=== PATIENT | male | born 1975 | race Caucasian/White ===

== ENCOUNTER 2017-07-24 15:55 | Inpatient (IN) | payer OTHER ==
[2017-07-24 17:29] VITALS: BMI 29.0
--- NOTE | 2017-07-24 18:17 | HP ---
COWS - Scale Resting Pulse: 0= DE 80 or Below Sweatin= Chills/Flushing Restless Observation: 3= Extraneous Movement Pupil Size: 2= Moderately Dilated Bone or Joint Aches: 2= Severe Diffuse Aches Runny Nose/ Eye Tearin= Runny Nose/Eyes GI Upset > 30mins: 3= Vomiting/Diarrhea Tremor Observation: 2= Slight Tremor Visible Yawning Observation: 2= >3x During Session Anxiety or Irritability: 2=Irritable/Anxious Goose Flesh Skin: 0=Smooth Skin COWS Score: 19 Admission ROS S - HPI Chief Complaint: I NEED HELP TO STOP USING HEROIN AND COCAINE Allergies/Adverse Reactions: Allergies Allergy/AdvReac Type Severity Reaction Status Date / Time No Known Drug Allergies Allergy Verified 09/09/15 23:05 fish Allergy Severe Hives Uncoded 09/09/15 23:05 History of Present Illness: THIS 42 YEARS OLD MALE WITH HEROIN AND COCAINE DEPENDENCE,SEEKING DETOX,LAST TREATMENT Exam Limitations: No Limitations - Ebola screening Have you traveled outside of the country in the last 21 days: No Have you had contact with anyone from an Ebola affected area: No Have you been sick,other than usual withdrawal symptoms: No Do you have a fever: No - Review of Systems Constitutional: Chills, Diaphoresis, Loss of Appetite, Malaise, Night Sweats, Changes in sleep, Weakness, Unintentional Wgt. Loss EENT: reports: Tearing, Nose Congestion Respiratory: reports: No Symptoms reported Cardiac: reports: No Symptoms Reported GI: reports: Diarrhea, Nausea, Poor Appetite, Vomiting : reports: No Symptoms Reported Musculoskeletal: reports: Back Pain, Joint Pain, Muscle Pain, Joint Stiffness Integumentary: reports: Dryness Neuro: reports: Tremors Endocrine: reports: No Symptoms Reported Hematology: reports: No Symptoms Reported, Swollen Glands (BIPOLAR DISORDER) Psychiatric: reports: Judgement Intact, Orientated x3, other Patient History - Patient Medical History Hx Anemia: No Hx Asthma: No Hx Chronic Obstructive Pulmonary Disease (COPD): No Hx Cancer: No Hx Cardiac Disorders: No Hx Congestive Heart Failure: No Hx Hypertension: No Hx Hypercholesterolemia: No Hx Pacemaker: No HX Cerebrovascular Accident: No Hx Seizures: No Hx Dementia: No Hx Diabetes: No Hx Gastrointestinal Disorders: No Hx Liver Disease: No Hx Genitourinary Disorders: No Hx Sexually Transmitted Disorders: No Hx Renal Disease (ESRD): No Hx Thyroid Disease: No Hx Human Immunodeficiency Virus (HIV): No (2014 neg) Hx Hepatitis C: Yes (TREATED IN 2015 WITH JOSE D) Hx Depression: Yes (AND ANXIETY) Hx Suicide Attempt: No Hx Bipolar Disorder: Yes Hx Schizophrenia: No Other Medical History: NO SUICIDAL,NO HOMICIDAL,FX OF LEFT WRIST IN 2014 TREATED AT [facility] - Patient Surgical History Past Surgical History: No Hx Neurologic Surgery: No Hx Cataract Extraction: No Hx Cardiac Surgery: No Hx Lung Surgery: No Hx Breast Surgery: No Hx Breast Biopsy: No Hx Abdominal Surgery: No Hx Appendectomy: No Hx Cholecystectomy: No Hx Genitourinary Surgery: No Hx Section: No Hx Orthopedic Surgery: No Anesthesia Reaction: No - PPD History Previous Implant?: Yes Documented Results: Negative w/o proof Date: 07/07/15 Results: 0 mm PPD to be Administered?: Yes - Smoking Cessation Smoking history: Current every day smoker Have you smoked in the past 12 months: Yes Aproximately how many cigarettes per day: 10 Hx Chewing Tobacco Use: No Initiated information on smoking cessation: Yes 'Breaking Loose' booklet given: 07/24/17 - Substance & Tx. History Hx Alcohol Use: No Hx Substance Use: Yes Substance Use Type: Cocaine, Heroin Hx Substance Use Treatment: Yes ([facility] 09/09/15 TO 09/13/15) - Substances Abused Heroin Route: Injection Frequency: Daily Amount used: 20 BAGS Age of first use: 19 Date of Last Use: 07/24/17 Cocaine Route: Injection Frequency: Daily Amount used: 80$ Age of first use: 18 Date of Last Use: 07/24/17 Family Disease History - Family Disease History Family Disease History: Diabetes: Grandparent, CA: Grandparent, Other: Father ( substance) Admission Physical Exam S - Vital Signs Vital Signs: Vital Signs - 24 hr 07/24/17 17:27 Temperature 97.5 F L Pulse Rate 70 Respiratory 18 Rate Blood Pressure 112/67 - Physical General Appearance: Yes: Moderate Distress, Tremorous, Irritable, Sweating, Anxious HEENTM: Yes: Normocephalic, DIANA, Pharynx Normal Respiratory: Yes: Lungs Clear, Normal Breath Sounds, No Respiratory Distress Neck: Yes: Within Normal Limits, Supple, Trachea in good position Breast: Yes: Within Normal Limits Cardiology: Yes: Within Normal Limits, Regular Rhythm, Regular Rate, S1, S2 Abdominal: Yes: Within Normal Limits, Normal Bowel Sounds, Non Tender, Soft Genitourinary: Yes: Within Normal Limits Back: Yes: Normal Inspection, Muscle Spasm Musculoskeletal: Yes: full range of Motion, Back pain, Joint Stiffness, Muscle Pain Extremities: Yes: Normal Range of Motion (DEFORMITY LEFT WRIST), Tremors, Other (DEFORMITY LEFT WIST OLD FX SINCE 2014) Neurological: Yes: cut in worker II-XII NML intact, Fully Oriented, Alert, Motor Strength 5/5 Integumentary: Yes: Dry, Track Villalobos Lymphatic: Yes: Within Normal Limits - Diagnostic (1) Opioid dependence with withdrawal Current Visit: No Status: Acute (2) Bipolar disorder Current Visit: No Status: Acute (3) Cocaine dependence, uncomplicated Current Visit: No Status: Acute (4) Wrist fracture Current Visit: No Status: Acute (5) Chronic low back pain Current Visit: No Status: Chronic (6) Hepatitis C Current Visit: No Status: Chronic Qualifiers: Viral hepatitis chronicity: chronic Hepatic coma status: without hepatic coma Qualified Code(s): B18.2 - Chronic viral hepatitis C (7) Heroin dependence Current Visit: No Status: Chronic (8) Weight loss Current Visit: Yes Status: Acute Cleared for Admission [facility] - Detox or Rehab [facility] Level of Care: Medically Managed Detox Regimen/Protocol: Methadone [facility] Breath Alcohol Content Breath Alcohol Content: 0 Urine Drug Screen - Results Drug Screen Negative: No Urine Drug Screen Results: HERMINIO-Cocaine, OPI-Opiates
[2017-07-24] MEDS ORDERED: guaiFENesin/D-METHORPHAN HB 10 ML UNIT-DOSE CUPS PO PRN (18:38)
[2017-07-24] MEDS ORDERED: P-EPHED 60MG/TRIPROLIDI 2.5MG TABLET PO PRN (18:38)
[2017-07-24] MEDS ORDERED: METHADONE HCL 10 MG TABLET (FOR DETOX USE ONLY) PO ONE ×2 (18:38→23:00)
[2017-07-24] MEDS ORDERED: MENTHOL/PHENOL 1 EACH UD MM PRN (18:38)
[2017-07-24] MEDS ORDERED: NICOTINE POLACRILEX 2 MG GUM BC PRN (18:38)
[2017-07-24] MEDS ORDERED: LOPERAMIDE HCL 2 MG CAPSULE PO PRN (18:38)
[2017-07-24] MEDS ORDERED: hydrOXYzine PAMOATE 50 MG CAPSULE (FP) PO PRN (18:38)
[2017-07-24] MEDS ORDERED: MAGNESIUM CITRATE 300 ML BOTTLE PO PRN (18:38)
[2017-07-24] MEDS ORDERED: IBUPROFEN 400 MG TABLET (FP) PO PRN (18:38)
[2017-07-24] MEDS ORDERED: MAG HYDROX/AL HYDROX/SIMETH 30 ML UNIT-DOSE CUP PO PRN (18:38)
[2017-07-24] MEDS ORDERED: MAGNESIUM HYDROX 2400MG/30ML ORAL SUSPENSION 30 ML CUP PO PRN (18:38)
[2017-07-24] MEDS ORDERED: diphenhydrAMINE HCL 50 MG CAPSULE PO PRN (18:38)
[2017-07-24] MEDS ORDERED: ACETAMINOPHEN 325 MG TABLET (FP) PO PRN (18:38)
[2017-07-24] MEDS ORDERED: METHADONE HCL 10 MG TABLET (FOR DETOX USE ONLY) ONE (20:44)
[2017-07-24] MEDS: THIAMINE HCL 100 MG TABLET (FP) PO SCH (21:01)
[2017-07-24] MEDS: cloNIDine HCL 0.1 MG TABLET PO SCH (21:01)
[2017-07-24] MEDS: diazePAM 5 MG TABLET PO PRN (21:02)
[2017-07-24] MEDS: NICOTINE 21 MG/24 HOURS TOPICAL PATCH TD SCH (21:03)
[2017-07-25] MEDS: diazePAM 5 MG TABLET PO PRN ×4 (05:40→19:14)
[2017-07-25 07:26] LABS: URINE APPEARANCE SLCLOUDY; URINE BILIRUBIN NEGATIVE (NEGATIVE); URINE BLOOD NEGATIVE (NEGATIVE); URINE COLOR DKYELLOW; URINE GLUCOSE (UA) NEGATIVE (NEGATIVE); URINE KETONE NEGATIVE (NEGATIVE); URINE LEUK ESTERASE NEGATIVE (NEGATIVE); URINE NITRITE NEGATIVE (NEGATIVE); URINE PROTEIN NEGATIVE (NEGATIVE); URINE UROBILINOGEN 4.0 E.U/dl mg/dL (0.2-1.0)
--- NOTE | 2017-07-25 08:51 | CONSULT ---
[facility] Psychiatric Consult - Data Date of interview: 07/25/17 Admission source: Self-referred Identifying data: Mr Muhammad is a 42 years old single , father of a 4 years old daughter, unemployed with no source of income, homeless seeking detox treatment for heroin and cocaine Substance Abuse History: Reports history of heroin and cocaine use. He started using cocaine at age 18 & heroin at 19, consumes $80 worth of cocaine & 20 bags of heroin daily. Last used them on 07/24/17 Medical History: Significant for treatment for hepatitis c, LBP and history of fracture left wrist in 2014. Smokes 10 cigarettes daily Psychiatric History: Reports being diagnosed with Bipolar Disorder in 2003 and received psychiatric outpatient services in [place] and [facility] from 2007 to 2012 when he decided to stop taking medications. He was prescribed Seroquel, Depakote , Xanax and Buspar. Denies history of previous psychiatric hospitalization or suicidal attempt. At present, reports experiencing difficulty to sleep Physical/Sexual Abuse/Trauma History: Denies history of verbal, physical or sexual abuse as well as DV relationship Additional Comment: Reports history of 8 previous misdemeanor arrests. denies being on probation currently Mental Status Exam - Mental Status Exam Alert and Oriented to: Time, Place, Person Cognitive Function: Fair Patient Appearance: Well Groomed Mood: Hopeful, Euthymic Affect: Appropriate, Normal Range Patient Behavior: Cooperative Speech Pattern: Clear Voice Loudness: Normal Thought Process: Intact, Goal Oriented Thought Disorder: Not Present Hallucinations: Denies Suicidal Ideation: Denies Homicidal Ideation: Denies Insight/Judgement: Poor Sleep: Poorly Appetite: Fair Muscle strength/Tone: Normal Gait/Station: Normal Psychiatric Findings - Problem List ([place] 1, 2,3) (1) Substance induced mood disorder Current Visit: Yes Status: Acute (2) Bipolar disorder Current Visit: No Status: Acute (3) Opioid dependence with withdrawal Current Visit: No Status: Acute (4) Cocaine dependence, uncomplicated Current Visit: No Status: Acute (5) Nicotine dependence Current Visit: No Status: Chronic Qualifiers: Nicotine product type: cigarettes (6) Wrist fracture Current Visit: No Status: Acute (7) Chronic low back pain Current Visit: No Status: Chronic (8) Heroin dependence Current Visit: No Status: Chronic (9) Substance or medication-induced sleep disorder Current Visit: Yes Status: Acute - Initial Treatment Plan Initial Treatment Plan: 1) Start Ambien 10 mg po HS prn for insomnia. 2) Continue inpatient detoxification
--- NOTE | 2017-07-25 09:59 | EKG ---
Test Reason : Blood Pressure : / mmHG Vent. Rate : 056 BPM Atrial Rate : 056 BPM P-R Int : 158 ms QRS Dur : 104 ms QT Int : 454 ms P-R-T Axes : -27 063 045 degrees QTc Int : 438 ms SINUS BRADYCARDIA EARLY REPOLARIZATION NO PREVIOUS ECGS AVAILABLE Confirmed by SAVANAH AYOUB MD ([id number]) on 07/25/2017 9:59:00 AM Referred By: Confirmed By:SAVANAH AYOUB MD
[2017-07-25] MEDS ORDERED: METHADONE HCL 10 MG TABLET (FOR DETOX USE ONLY) PO ONE (10:00)
[2017-07-25 10:08] LABS: MCH 29.4 pg (25.7-33.7); MEAN PLT VOLUME 7.8 fl (7.5-11.1); PLATELET COUNT 190 K/MM3 (134-434); RDW 14.4 % (11.9-15.9); WHITE BLOOD COUNT 5.5 K/mm3 (4.0-10.0)
[2017-07-25] MEDS: cloNIDine HCL 0.1 MG TABLET PO SCH ×2 (10:17→22:00)
[2017-07-25] MEDS: PRENATAL VITAMINS W/ FOLIC ACID TABLET (FP) PO SCH (10:17)
[2017-07-25] MEDS: NICOTINE 21 MG/24 HOURS TOPICAL PATCH TD SCH ×2 (10:18→10:20)
[2017-07-25 10:38] LABS: ALBUMIN 3.2 g/dl (3.4-5.0); ANION GAP 6 (8-16); CALCIUM 8.4 mg/dL (8.5-10.1); CO2 28 mmol/L (21-32); GLUCOSE,RANDOM 127 mg/dL (74-106); SGOT/AST 27 U/L (15-37); SGPT/ALT 52 U/L (12-78)
[2017-07-25 10:40] LABS: ALK PHOS 121 U/L (45-117); BILIRUBIN,TOTAL 0.6 mg/dL (0.2-1.0); TOT PROT 6.1 g/dl (6.4-8.2)
--- NOTE | 2017-07-25 13:04 | PN ---
BHS COWS - Scale Resting Pulse: 1= [place] 81-100 Sweatin= Chills/Flushing Restless Observation: 3= Extraneous Movement Pupil Size: 0= Normal to Room Light Bone or Joint Aches: 2= Severe Diffuse Aches Runny Nose/ Eye Tearin= Runny Nose/Eyes GI Upset > 30mins: 2= Nausea/Diarrhea Tremor Observation of Outstretched Hands: 2= Slight Tremor Visible Yawning Observation: 1= 1-2x During Session Anxiety or Irritability: 2=Irritable/Anxious Goose Flesh Skin: 0=Smooth Skin COWS Score: 16 BHS Progress Note (SOAP) Subjective: Sweating, chills, interrupted sleep, anxious Objective: 07/25/17 13:01 Last Vital Signs Temp Pulse Resp BP Pulse Ox 98.6 F 82 18 98/60 07/25/17 09:46 07/25/17 09:46 07/25/17 09:46 07/25/17 09:46 Hypotension noted Laboratory Tests 07/24/17 07/25/17 07/25/17 21:35 08:00 08:00 WBC 5.5 RBC 4.37 Hgb 12.9 Hct 38.9 MCV 89.0 MCH 29.4 MCHC 33.0 RDW 14.4 Plt Count 190 D MPV 7.8 Sodium 138 Potassium 4.0 Chloride 104 Carbon Dioxide 28 Anion Gap 6 L BUN 12 Creatinine 1.0 D Creat Clearance w eGFR > 60 Random Glucose 127 H Calcium 8.4 L Total Bilirubin 0.6 AST 27 ALT 52 Alkaline Phosphatase 121 H D Total Protein 6.1 L Albumin 3.2 L Urine Color Dkyellow Urine Appearance Slcloudy Urine pH 5.0 D Ur Specific [place] 1.025 Urine Protein Negative Urine Glucose (UA) Negative Urine Ketones Negative Urine Blood Negative Urine Nitrite Negative Urine Bilirubin Negative Urine Urobilinogen 4.0 e.u/dl RPR Titer 07/25/17 08:00 WBC RBC Hgb Hct MCV MCH MCHC RDW Plt Count MPV Sodium Potassium Chloride Carbon Dioxide Anion Gap BUN Creatinine Creat Clearance w eGFR Random Glucose Calcium Total Bilirubin AST ALT Alkaline Phosphatase Total Protein Albumin Urine Color Urine Appearance Urine pH Ur Specific [place] Urine Protein Urine Glucose (UA) Urine Ketones Urine Blood Urine Nitrite Urine Bilirubin Urine Urobilinogen RPR Titer Nonreactive Labs noted: serum glucose 127 Assessment: 07/25/17 13:02 Withdrawal symptoms Noted with hypotension and hyperglycemia Plan: Continue detox Hypotension: encouraged to drink lots of water, water pitcher ordered Hyperglycemia: fasting serum glucose in AM, send HbA1c
[2017-07-25] MEDS: ZOLPIDEM TARTRATE 5 MG TABLET PO PRN (22:00)
[2017-07-25] MEDS: THIAMINE HCL 100 MG TABLET (FP) PO SCH (22:00)
[2017-07-25] MEDS: CYCLOBENZAPRINE HCL 10 MG TABLET (FP) PO PRN (22:00)
[2017-07-26] MEDS: diazePAM 5 MG TABLET PO PRN ×4 (05:31→22:01)
[2017-07-26] MEDS ORDERED: METHADONE HCL 5 MG TABLET (FOR DETOX USE ONLY) PO ONE (10:00)
[2017-07-26] MEDS: PRENATAL VITAMINS W/ FOLIC ACID TABLET (FP) PO SCH (10:11)
[2017-07-26] MEDS: cloNIDine HCL 0.1 MG TABLET PO SCH ×2 (10:11→22:01)
[2017-07-26] MEDS: NICOTINE 21 MG/24 HOURS TOPICAL PATCH TD SCH (10:12)
--- NOTE | 2017-07-26 10:17 | PN ---
BHS COWS - Scale Resting Pulse: 0= DE 80 or Below Sweatin= Chills/Flushing Restless Observation: 3= Extraneous Movement Pupil Size: 2= Moderately Dilated Bone or Joint Aches: 4=Acute Joint/Muscle Pain Runny Nose/ Eye Tearin= Nasal Congestion GI Upset > 30mins: 1= Stomach Cramp Tremor Observation of Outstretched Hands: 1= Tremor [place], Not Seen Yawning Observation: 2= >3x During Session Anxiety or Irritability: 2=Irritable/Anxious Goose Flesh Skin: 0=Smooth Skin COWS Score: 17 BHS Progress Note (SOAP) Subjective: ANXIETY,SWEATS,INTERMITTENT SLEEP. Objective: 07/26/17 10:16 Vital Signs Temperature 96.9 F L 07/26/17 08:49 Pulse Rate 66 07/26/17 08:49 Respiratory Rate 18 07/26/17 08:49 Blood Pressure 101/63 07/26/17 08:49 O2 Sat by Pulse Oximetry (%) Laboratory Last Values WBC 5.5 K/mm3 (4.0-10.0) 07/25/17 08:00 RBC 4.37 M/mm3 (4.00-5.60) 07/25/17 08:00 Hgb 12.9 GM/dL (11.7-16.9) 07/25/17 08:00 Hct 38.9 % (35.4-49) 07/25/17 08:00 MCV 89.0 fl (80-96) 07/25/17 08:00 MCH 29.4 pg (25.7-33.7) 07/25/17 08:00 MCHC 33.0 g/dl (32.0-35.9) 07/25/17 08:00 RDW 14.4 % (11.9-15.9) 07/25/17 08:00 Plt Count 190 K/MM3 (134-434) D 07/25/17 08:00 MPV 7.8 fl (7.5-11.1) 07/25/17 08:00 Sodium 138 mmol/L (136-145) 07/25/17 08:00 Potassium 4.0 mmol/L (3.5-5.1) 07/25/17 08:00 Chloride 104 mmol/L (98-107) 07/25/17 08:00 Carbon Dioxide 28 mmol/L (21-32) 07/25/17 08:00 Anion Gap 6 (8-16) L 07/25/17 08:00 BUN 12 mg/dL (7-18) 07/25/17 08:00 Creatinine 1.0 mg/dL (0.7-1.3) D 07/25/17 08:00 Creat Clearance w eGFR > 60 (>60) 07/25/17 08:00 Random Glucose 127 mg/dL (74-106) H 07/25/17 08:00 Calcium 8.4 mg/dL (8.5-10.1) L 07/25/17 08:00 Total Bilirubin 0.6 mg/dL (0.2-1.0) 07/25/17 08:00 AST 27 U/L (15-37) 07/25/17 08:00 ALT 52 U/L (12-78) 07/25/17 08:00 Alkaline Phosphatase 121 U/L (45-117) H D 07/25/17 08:00 Total Protein 6.1 g/dl (6.4-8.2) L 07/25/17 08:00 Albumin 3.2 g/dl (3.4-5.0) L 07/25/17 08:00 Urine Color Dkyellow 07/24/17 21:35 Urine Appearance Slcloudy 07/24/17 21:35 Urine pH 5.0 (5.0-8.0) D 07/24/17 21:35 Ur Specific [place] 1.025 (1.005-1.025) 07/24/17 21:35 Urine Protein Negative (NEGATIVE) 07/24/17 21:35 Urine Glucose (UA) Negative (NEGATIVE) 07/24/17 21:35 Urine Ketones Negative (NEGATIVE) 07/24/17 21:35 Urine Blood Negative (NEGATIVE) 07/24/17 21:35 Urine Nitrite Negative (NEGATIVE) 07/24/17 21:35 Urine Bilirubin Negative (NEGATIVE) 07/24/17 21:35 Urine Urobilinogen 4.0 e.u/dl mg/dL (0.2-1.0) 07/24/17 21:35 RPR Titer Nonreactive (NONREACTIVE) 07/25/17 08:00 Assessment: 10/02/17 10:16 WITHDRAWAL SX Plan: CONTINUE DETOX
[2017-07-26] MEDS: ZOLPIDEM TARTRATE 5 MG TABLET PO PRN (22:01)
[2017-07-26] MEDS: THIAMINE HCL 100 MG TABLET (FP) PO SCH (22:01)
[2017-07-26] MEDS: CYCLOBENZAPRINE HCL 10 MG TABLET (FP) PO PRN (22:01)
[2017-07-27] MEDS ORDERED: METHADONE HCL 5 MG TABLET (FOR DETOX USE ONLY) PO ONE (10:00)
[2017-07-27] MEDS: PRENATAL VITAMINS W/ FOLIC ACID TABLET (FP) PO SCH (10:10)
[2017-07-27] MEDS: NICOTINE 21 MG/24 HOURS TOPICAL PATCH TD SCH (10:10)
[2017-07-27] MEDS: diazePAM 5 MG TABLET PO PRN ×2 (10:10→17:17)
[2017-07-27] MEDS: cloNIDine HCL 0.1 MG TABLET PO SCH ×2 (10:11→22:05)
--- NOTE | 2017-07-27 12:17 | PN ---
BHS Progress Note (SOAP) Subjective: ALERT O X 3. C/O CHILLS, FATIGUE. Objective: 07/27/17 12:16 Vital Signs Temperature 96.8 F L 07/27/17 09:09 Pulse Rate 71 07/27/17 09:09 Respiratory Rate 18 07/27/17 09:09 Blood Pressure 105/53 07/27/17 09:09 O2 Sat by Pulse Oximetry (%) Laboratory Last Values WBC 5.5 K/mm3 (4.0-10.0) 07/25/17 08:00 RBC 4.37 M/mm3 (4.00-5.60) 07/25/17 08:00 Hgb 12.9 GM/dL (11.7-16.9) 07/25/17 08:00 Hct 38.9 % (35.4-49) 07/25/17 08:00 MCV 89.0 fl (80-96) 07/25/17 08:00 MCH 29.4 pg (25.7-33.7) 07/25/17 08:00 MCHC 33.0 g/dl (32.0-35.9) 07/25/17 08:00 RDW 14.4 % (11.9-15.9) 07/25/17 08:00 Plt Count 190 K/MM3 (134-434) D 07/25/17 08:00 MPV 7.8 fl (7.5-11.1) 07/25/17 08:00 Sodium 138 mmol/L (136-145) 07/25/17 08:00 Potassium 4.0 mmol/L (3.5-5.1) 07/25/17 08:00 Chloride 104 mmol/L (98-107) 07/25/17 08:00 Carbon Dioxide 28 mmol/L (21-32) 07/25/17 08:00 Anion Gap 6 (8-16) L 07/25/17 08:00 BUN 12 mg/dL (7-18) 07/25/17 08:00 Creatinine 1.0 mg/dL (0.7-1.3) D 07/25/17 08:00 Creat Clearance w eGFR > 60 (>60) 07/25/17 08:00 Random Glucose 127 mg/dL (74-106) H 07/25/17 08:00 Fasting Glucose 99 mg/dL (70-105) 07/26/17 07:30 Hemoglobin A1c % 6.1 % (4.8-6.0) H 07/26/17 07:30 Calcium 8.4 mg/dL (8.5-10.1) L 07/25/17 08:00 Total Bilirubin 0.6 mg/dL (0.2-1.0) 07/25/17 08:00 AST 27 U/L (15-37) 07/25/17 08:00 ALT 52 U/L (12-78) 07/25/17 08:00 Alkaline Phosphatase 121 U/L (45-117) H D 07/25/17 08:00 Total Protein 6.1 g/dl (6.4-8.2) L 07/25/17 08:00 Albumin 3.2 g/dl (3.4-5.0) L 07/25/17 08:00 Urine Color Dkyellow 07/24/17 21:35 Urine Appearance Slcloudy 07/24/17 21:35 Urine pH 5.0 (5.0-8.0) D 07/24/17 21:35 Ur Specific [place] 1.025 (1.005-1.025) 07/24/17 21:35 Urine Protein Negative (NEGATIVE) 07/24/17 21:35 Urine Glucose (UA) Negative (NEGATIVE) 07/24/17 21:35 Urine Ketones Negative (NEGATIVE) 07/24/17 21:35 Urine Blood Negative (NEGATIVE) 07/24/17 21:35 Urine Nitrite Negative (NEGATIVE) 07/24/17 21:35 Urine Bilirubin Negative (NEGATIVE) 07/24/17 21:35 Urine Urobilinogen 4.0 e.u/dl mg/dL (0.2-1.0) 07/24/17 21:35 RPR Titer Nonreactive (NONREACTIVE) 07/25/17 08:00 Assessment: 07/27/17 12:16 WITHDRAWAL SX Plan: CONTINUE DETOX
[2017-07-27] MEDS: THIAMINE HCL 100 MG TABLET (FP) PO SCH (22:05)
[2017-07-27] MEDS: ZOLPIDEM TARTRATE 5 MG TABLET PO PRN (22:05)
[2017-07-28] MEDS ORDERED: METHADONE HCL 10 MG TABLET (FOR DETOX USE ONLY) PO ONE (10:00)
[2017-07-28] MEDS: PRENATAL VITAMINS W/ FOLIC ACID TABLET (FP) PO SCH (10:10)
[2017-07-28] MEDS: cloNIDine HCL 0.1 MG TABLET PO SCH ×2 (10:10→22:06)
[2017-07-28] MEDS: NICOTINE 21 MG/24 HOURS TOPICAL PATCH TD SCH (10:10)
--- NOTE | 2017-07-28 11:37 | PN ---
BHS Progress Note (SOAP) Subjective: ANXIETY,BACKACHE,FATIGUE. Objective: 07/28/17 11:36 Vital Signs Temperature 96.6 F L 07/28/17 09:17 Pulse Rate 69 07/28/17 09:17 Respiratory Rate 18 07/28/17 09:17 Blood Pressure 103/52 07/28/17 09:17 O2 Sat by Pulse Oximetry (%) Laboratory Last Values WBC 5.5 K/mm3 (4.0-10.0) 07/25/17 08:00 RBC 4.37 M/mm3 (4.00-5.60) 07/25/17 08:00 Hgb 12.9 GM/dL (11.7-16.9) 07/25/17 08:00 Hct 38.9 % (35.4-49) 07/25/17 08:00 MCV 89.0 fl (80-96) 07/25/17 08:00 MCH 29.4 pg (25.7-33.7) 07/25/17 08:00 MCHC 33.0 g/dl (32.0-35.9) 07/25/17 08:00 RDW 14.4 % (11.9-15.9) 07/25/17 08:00 Plt Count 190 K/MM3 (134-434) D 07/25/17 08:00 MPV 7.8 fl (7.5-11.1) 07/25/17 08:00 Sodium 138 mmol/L (136-145) 07/25/17 08:00 Potassium 4.0 mmol/L (3.5-5.1) 07/25/17 08:00 Chloride 104 mmol/L (98-107) 07/25/17 08:00 Carbon Dioxide 28 mmol/L (21-32) 07/25/17 08:00 Anion Gap 6 (8-16) L 07/25/17 08:00 BUN 12 mg/dL (7-18) 07/25/17 08:00 Creatinine 1.0 mg/dL (0.7-1.3) D 07/25/17 08:00 Creat Clearance w eGFR > 60 (>60) 07/25/17 08:00 Random Glucose 127 mg/dL (74-106) H 07/25/17 08:00 Fasting Glucose 99 mg/dL (70-105) 07/26/17 07:30 Hemoglobin A1c % 6.1 % (4.8-6.0) H 07/26/17 07:30 Calcium 8.4 mg/dL (8.5-10.1) L 07/25/17 08:00 Total Bilirubin 0.6 mg/dL (0.2-1.0) 07/25/17 08:00 AST 27 U/L (15-37) 07/25/17 08:00 ALT 52 U/L (12-78) 07/25/17 08:00 Alkaline Phosphatase 121 U/L (45-117) H D 07/25/17 08:00 Total Protein 6.1 g/dl (6.4-8.2) L 07/25/17 08:00 Albumin 3.2 g/dl (3.4-5.0) L 07/25/17 08:00 Urine Color Dkyellow 07/24/17 21:35 Urine Appearance Slcloudy 07/24/17 21:35 Urine pH 5.0 (5.0-8.0) D 07/24/17 21:35 Ur Specific [place] 1.025 (1.005-1.025) 07/24/17 21:35 Urine Protein Negative (NEGATIVE) 07/24/17 21:35 Urine Glucose (UA) Negative (NEGATIVE) 07/24/17 21:35 Urine Ketones Negative (NEGATIVE) 07/24/17 21:35 Urine Blood Negative (NEGATIVE) 07/24/17 21:35 Urine Nitrite Negative (NEGATIVE) 07/24/17 21:35 Urine Bilirubin Negative (NEGATIVE) 07/24/17 21:35 Urine Urobilinogen 4.0 e.u/dl mg/dL (0.2-1.0) 07/24/17 21:35 RPR Titer Nonreactive (NONREACTIVE) 07/25/17 08:00 Assessment: 07/28/17 11:36 WITHDRAWAL SX Plan: CONTINUE DETOX
[2017-07-28] MEDS: ZOLPIDEM TARTRATE 5 MG TABLET PO PRN (22:06)
[2017-07-28] MEDS: THIAMINE HCL 100 MG TABLET (FP) PO SCH (22:06)
[2017-07-29] MEDS ORDERED: METHADONE HCL 5 MG TABLET (FOR DETOX USE ONLY) PO ONE (06:00)
[2017-07-29 06:51] VITALS: BP 97/64; PULSE 63; TEMP 96.4
--- NOTE | 2017-07-29 13:50 | DS ---
[facility] Detox Discharge Summary Admission Date: 07/24/17 Discharge Date: 07/29/17 - History Present History: Cocaine Dependence, Opioid Dependence Additional Comments: DETOX COMPLETED. PATIENT IS ALERT AND ORIENTED X 3. NAD. PATIENT ENCOURAGED TO FOLLOW UP WITH PMD FOR MEDICAL MANAGEMENT AT [place], [place]. HE REFUSED AFTERCARE REFERRAL AND PARTICIPATED IN 12 STEP IN HOUSE GROUP. Pertinent Past History: HEP. C, BACK PAIN, NICOTINE DEPENDENCE, ANXIETY DISORDER - Physical Exam Results Vital Signs: Vital Signs Temperature 96.4 F L 07/29/17 06:51 Pulse Rate 63 07/29/17 06:51 Respiratory Rate 18 07/29/17 06:51 Blood Pressure 97/64 07/29/17 06:51 O2 Sat by Pulse Oximetry (%) Laboratory Last Values WBC 5.5 K/mm3 (4.0-10.0) 07/25/17 08:00 RBC 4.37 M/mm3 (4.00-5.60) 07/25/17 08:00 Hgb 12.9 GM/dL (11.7-16.9) 07/25/17 08:00 Hct 38.9 % (35.4-49) 07/25/17 08:00 MCV 89.0 fl (80-96) 07/25/17 08:00 MCH 29.4 pg (25.7-33.7) 07/25/17 08:00 MCHC 33.0 g/dl (32.0-35.9) 07/25/17 08:00 RDW 14.4 % (11.9-15.9) 07/25/17 08:00 Plt Count 190 K/MM3 (134-434) D 07/25/17 08:00 MPV 7.8 fl (7.5-11.1) 07/25/17 08:00 Sodium 138 mmol/L (136-145) 07/25/17 08:00 Potassium 4.0 mmol/L (3.5-5.1) 07/25/17 08:00 Chloride 104 mmol/L (98-107) 07/25/17 08:00 Carbon Dioxide 28 mmol/L (21-32) 07/25/17 08:00 Anion Gap 6 (8-16) L 07/25/17 08:00 BUN 12 mg/dL (7-18) 07/25/17 08:00 Creatinine 1.0 mg/dL (0.7-1.3) D 07/25/17 08:00 Creat Clearance w eGFR > 60 (>60) 07/25/17 08:00 Random Glucose 127 mg/dL (74-106) H 07/25/17 08:00 Fasting Glucose 99 mg/dL (70-105) 07/26/17 07:30 Hemoglobin A1c % 6.1 % (4.8-6.0) H 07/26/17 07:30 Calcium 8.4 mg/dL (8.5-10.1) L 07/25/17 08:00 Total Bilirubin 0.6 mg/dL (0.2-1.0) 07/25/17 08:00 AST 27 U/L (15-37) 07/25/17 08:00 ALT 52 U/L (12-78) 07/25/17 08:00 Alkaline Phosphatase 121 U/L (45-117) H D 07/25/17 08:00 Total Protein 6.1 g/dl (6.4-8.2) L 07/25/17 08:00 Albumin 3.2 g/dl (3.4-5.0) L 07/25/17 08:00 Urine Color Dkyellow 07/24/17 21:35 Urine Appearance Slcloudy 07/24/17 21:35 Urine pH 5.0 (5.0-8.0) D 07/24/17 21:35 Ur Specific [place] 1.025 (1.005-1.025) 07/24/17 21:35 Urine Protein Negative (NEGATIVE) 07/24/17 21:35 Urine Glucose (UA) Negative (NEGATIVE) 07/24/17 21:35 Urine Ketones Negative (NEGATIVE) 07/24/17 21:35 Urine Blood Negative (NEGATIVE) 07/24/17 21:35 Urine Nitrite Negative (NEGATIVE) 07/24/17 21:35 Urine Bilirubin Negative (NEGATIVE) 07/24/17 21:35 Urine Urobilinogen 4.0 e.u/dl mg/dL (0.2-1.0) 07/24/17 21:35 RPR Titer Nonreactive (NONREACTIVE) 07/25/17 08:00 LABS REVIEWED Pertinent Admission Physical Exam Findings: WITHDRAWAL SX - Treatment Hospital Course: Detox Protocol Followed, Detoxed Safely, Responded well, Discharged Condition Good Patient has Accepted a Rehab Referral to: REFUSED AFTERCARE REFERRAL. INFORMATION PROVIDED TO PT. BY COUNSELOR - Medication Discharge Medications: Ambulatory Orders NK [No Known Home Medication] 09/09/15 - Diagnosis (1) Bipolar disorder Status: Chronic (2) Cocaine dependence, uncomplicated Status: Acute (3) Nicotine dependence Status: Acute Qualifiers: Nicotine product type: cigarettes Substance use status: in withdrawal Qualified Code(s): F17.213 - Nicotine dependence, cigarettes, with withdrawal; F17.213 - Nicotine dependence, cigarettes, with withdrawal (4) Opioid dependence with withdrawal Status: Acute (5) Substance induced mood disorder Status: Acute (6) Chronic low back pain Status: Chronic (7) Hepatitis C Status: Chronic Qualifiers: Viral hepatitis chronicity: chronic Hepatic coma status: without hepatic coma Qualified Code(s): B18.2 - Chronic viral hepatitis C; B18.2 - Chronic viral hepatitis C; B18.2 - Chronic viral hepatitis C; B18.2 - Chronic viral hepatitis C - AMA Did Patient Leave Against Medical Advice: No
== END 2017-07-29 08:55 | disposition home or self-care (01) | DRG 773 ==
LOC: YASAS 15:55 → Y3N 19:33
PROVIDERS: ADMIT Internal Medicine; ATTEND Internal Medicine
PROC: HZ2ZZZZ Detoxification Services for Substance Abuse Treatment (ICD-10-PCS; principal; 2017-07-24)
DX: F11.23 Opioid dependence with withdrawal (principal); F14.20 Cocaine dependence, uncomplicated; F17.213 Nicotine dependence, cigarettes, with withdrawal; F19.24 Other psychoactive substance dependence with psychoactive substance-induced mood disorder; F19.282 Other psychoactive substance dependence with psychoactive substance-induced sleep disorder; F31.9 Bipolar disorder, unspecified; B18.2 Chronic viral hepatitis C; M54.5 Low back pain; G89.29 Other chronic pain; E73.9 Lactose intolerance, unspecified; I95.9 Hypotension, unspecified; Z87.898 Personal history of other specified conditions; Z91.013 Allergy to seafood
CPT/HCPCS: 36415; 80053; 81003; 82947; 83036; 85027; 86593; 93005; 93010

== ENCOUNTER 2018-05-27 15:51 | Inpatient (IN) | payer OTHER ==
[2018-05-27 17:37] VITALS: BMI 24.2
[2018-05-27] MEDS ORDERED: MELATONIN 5 MG TABLETS PO PRN (22:00)
--- NOTE | 2018-05-27 22:13 | HP ---
COWS - Scale Resting Pulse: 0= [place] 80 or Below Sweatin=Flushed/Facial Moisture Restless Observation: 0= Sits Still Pupil Size: 0= Normal to Room Light Bone or Joint Aches: 4=Acute Joint/Muscle Pain Runny Nose/ Eye Tearin= Runny Nose/Eyes GI Upset > 30mins: 1= Stomach Cramp Tremor Observation: 4= Gross Tremor/Twitching Yawning Observation: 0= None Anxiety or Irritability: 2=Irritable/Anxious Goose Flesh Skin: 0=Smooth Skin COWS Score: 15 Admission [facility] Chief Complaint: HEROIN WITHDRAWAL SYMPTOMS Allergies/Adverse Reactions: Allergies Allergy/AdvReac Type Severity Reaction Status Date / Time No Known Drug Allergies Allergy Verified 05/27/18 20:06 fish Allergy Severe Hives Uncoded 07/24/17 20:49 History of Present Illness: 42 years old male with a long history of heroin dependence is seeking admission to detox. Patient has been to previous detox and reports 4 years of sobriety. He has medical history of Hep C, anxiety and depression. He denies suicide attempt and suicidal ideation at this time. Exam Limitations: No Limitations - Ebola screening Have you traveled outside of the country in the last 21 days: No (N) Have you had contact with anyone from an Ebola affected area: No Have you been sick,other than usual withdrawal symptoms: No Do you have a fever: No - Review of Systems Constitutional: Chills, Loss of Appetite, Malaise, Changes in sleep, Weakness EENT: reports: Nose Congestion Respiratory: reports: No Symptoms reported Cardiac: reports: No Symptoms Reported GI: reports: Constipated, Poor Appetite, Poor Fluid Intake, Abdominal cramping : reports: No Symptoms Reported Musculoskeletal: reports: Back Pain Integumentary: reports: Dryness Neuro: reports: Tremors Endocrine: reports: No Symptoms Reported Hematology: reports: No Symptoms Reported Psychiatric: reports: Anxious, Depressed Other Systems: Reviewed and Negative Patient History - Patient Medical History Hx Anemia: No Hx Asthma: No Hx Chronic Obstructive Pulmonary Disease (COPD): No Hx Cancer: No Hx Cardiac Disorders: No Hx Congestive Heart Failure: No Hx Hypertension: No Hx Hypercholesterolemia: No Hx Pacemaker: No HX Cerebrovascular Accident: No Hx Seizures: No Hx Dementia: No Hx Diabetes: No Hx Gastrointestinal Disorders: No Hx Liver Disease: No Hx Genitourinary Disorders: No Hx Sexually Transmitted Disorders: No Hx Renal Disease (ESRD): No Hx Thyroid Disease: No Hx Human Immunodeficiency Virus (HIV): No (2014 neg) Hx Hepatitis C: Yes (TREATED IN 2016 WITH JOSE D- Relapsed) Hx Depression: Yes (Not on medication) Hx Suicide Attempt: No Hx Bipolar Disorder: Yes (Not on medication) Hx Schizophrenia: No Other Medical History: Anxiety - Not on medication - Patient Surgical History Past Surgical History: Yes Hx Neurologic Surgery: No Hx Cataract Extraction: No Hx Cardiac Surgery: No Hx Lung Surgery: No Hx Abdominal Surgery: No Hx Appendectomy: Yes (APPENDECTOMY IN 1990) Hx Cholecystectomy: No Hx Genitourinary Surgery: No Hx Section: No Hx Orthopedic Surgery: No Anesthesia Reaction: No - PPD History Previous Implant?: Yes Implanted On Prior [facility] Admission?: Yes Date: 07/26/17 Results: 0 mm PPD to be Administered?: No - Reproductive History Patient is a Female of Child Bearing Age (11 -55 yrs old): No (Male) - Smoking Cessation Smoking history: Current every day smoker Have you smoked in the past 12 months: Yes Aproximately how many cigarettes per day: 10 Cigars Per Day: 10 Hx Chewing Tobacco Use: No Initiated information on smoking cessation: Yes 'Breaking Loose' booklet given: 05/27/18 - Substance & Tx. History Hx Substance Use: Yes Substance Use Type: Cocaine, Heroin Hx Substance Use Treatment: Yes ([facility]) - Substances Abused Heroin Route: Injection Frequency: Daily Amount used: $100 Age of first use: 19 Date of Last Use: 05/27/18 Cocaine Route: Injection Frequency: Daily Amount used: $60 Age of first use: 19 Date of Last Use: 05/27/18 Family Disease History - Family Disease History Family Disease History: Diabetes: Grandparent, [place]: Grandparent, Other: Father ( substance) Admission Physical Exam BHS - Vital Signs Vital Signs: Vital Signs - 24 hr 05/27/18 17:34 Temperature 98.0 F Pulse Rate 58 L Respiratory 16 Rate Blood Pressure 110/58 - Physical General Appearance: Yes: Moderate Distress HEENTM: Yes: EOMI, Normocephalic, Normal Voice, DIANA Respiratory: Yes: Lungs Clear, Normal Breath Sounds, No Respiratory Distress Neck: Yes: Supple Breast: Yes: Breast Exam Deferred Cardiology: Yes: Regular Rhythm, Regular Rate, S1, S2 Abdominal: Yes: Normal Bowel Sounds Genitourinary: Yes: Within Normal Limits Back: Yes: Normal Inspection Musculoskeletal: Yes: Back pain Extremities: Yes: Tremors Neurological: Yes: Alert, Normal Mood/Affect Integumentary: Yes: Warm Lymphatic: Yes: Within Normal Limits - Diagnostic (1) Anxiety Current Visit: Yes Status: Chronic (2) Depression Current Visit: Yes Status: Chronic Qualifiers: Depression Type: unspecified Qualified Code(s): F32.9 - Major depressive disorder, single episode, unspecified (3) Cocaine dependence, uncomplicated Current Visit: Yes Status: Chronic (4) Nicotine dependence Current Visit: Yes Status: Chronic Qualifiers: Nicotine product type: cigarettes Substance use status: in withdrawal Qualified Code(s): F17.213 - Nicotine dependence, cigarettes, with withdrawal (5) Opioid dependence with withdrawal Current Visit: Yes Status: Chronic (6) Chronic low back pain Current Visit: No Status: Chronic (7) Hepatitis C Current Visit: Yes Status: Chronic Qualifiers: Viral hepatitis chronicity: chronic Hepatic coma status: without hepatic coma Qualified Code(s): B18.2 - Chronic viral hepatitis C Cleared for Admission [facility] - Detox or Rehab [facility] Level of Care: Medically Managed Detox Regimen/Protocol: Methadone [facility] Breath Alcohol Content Breath Alcohol Content: 0 Urine Drug Screen - Results Drug Screen Negative: No Urine Drug Screen Results: HERMINIO-Cocaine, OPI-Opiates
[2018-05-27] MEDS ORDERED: MAGNESIUM CITRATE 300 ML BOTTLE PO PRN (22:19)
[2018-05-27] MEDS ORDERED: MENTHOL/PHENOL 1 EACH UD MM PRN (22:19)
[2018-05-27] MEDS ORDERED: LOPERAMIDE HCL 2 MG CAPSULE PO PRN (22:19)
[2018-05-27] MEDS ORDERED: MAG HYDROX/AL HYDROX/SIMETH 30 ML UNIT-DOSE CUP PO PRN (22:19)
[2018-05-27] MEDS ORDERED: ACETAMINOPHEN 325 MG TABLET (FP) PO PRN (22:19)
[2018-05-27] MEDS ORDERED: MAGNESIUM HYDROX 2400MG/30ML ORAL SUSPENSION 30 ML CUP PO PRN (22:19)
[2018-05-27] MEDS ORDERED: METHADONE HCL 10 MG TABLET (FOR DETOX USE ONLY) PO ONE ×2 (22:19→23:00)
[2018-05-27] MEDS ORDERED: IBUPROFEN 400 MG TABLET (FP) PO PRN (22:19)
[2018-05-27] MEDS ORDERED: P-EPHED 60MG/TRIPROLIDI 2.5MG TABLET PO PRN (22:19)
[2018-05-27] MEDS ORDERED: NICOTINE POLACRILEX 2 MG GUM BC PRN (22:19)
[2018-05-27] MEDS ORDERED: guaiFENesin/D-METHORPHAN HB 10 ML UNIT-DOSE CUPS PO PRN (22:19)
[2018-05-27] MEDS: diazePAM 5 MG TABLET PO PRN (23:50)
[2018-05-28] MEDS ORDERED: METHADONE HCL 10 MG TABLET (FOR DETOX USE ONLY) PO ONE (10:00)
[2018-05-28] MEDS: PRENATAL VITAMINS W/ FOLIC ACID TABLET (FP) PO SCH (10:13)
[2018-05-28] MEDS: diazePAM 5 MG TABLET PO PRN ×2 (10:14→22:30)
[2018-05-28] MEDS: NICOTINE 14 MG/24 HOURS TOPICAL PATCH TD SCH (10:14)
[2018-05-28 10:33] LABS: URINE APPEARANCE CLEAR; URINE BILIRUBIN NEGATIVE (<2.0 mg/dL); URINE COLOR YELLOW; URINE GLUCOSE (UA) NEGATIVE (NEGATIVE); URINE KETONE NEGATIVE (NEGATIVE); URINE LEUK ESTERASE NEGATIVE (NEGATIVE); URINE NITRITE NEGATIVE (NEGATIVE); URINE UROBILINOGEN 4.0 E.U/dl mg/dL (0.2-1.0)
[2018-05-28 10:36] LABS: HEMATOCRIT 33.8 % (35.4-49); HEMOGLOBIN 11.7 GM/dL (11.7-16.9); MCH 30.7 pg (25.7-33.7); MCHC 34.6 g/dl (32.0-35.9); MEAN CELL VOLUME 88.8 fl (80-96); MEAN PLT VOLUME 7.5 fl (7.5-11.1); PLATELET COUNT 190 K/MM3 (134-434); RBC 3.81 M/mm3 (4.00-5.60); RDW 15.9 % (11.9-15.9)
[2018-05-28 10:41] LABS: CHLORIDE 107 mmol/L (98-107); POTASSIUM 4.1 mmol/L (3.5-5.1); SODIUM 141 mmol/L (136-145)
[2018-05-28 10:50] LABS: URINE PROTEIN 1+ (NEGATIVE)
[2018-05-28 10:53] LABS: ALK PHOS 129 U/L (45-117); ANION GAP 5 (8-16); BILIRUBIN,TOTAL 0.3 mg/dL (0.2-1.0); BLOOD UREA NITROGEN 19 mg/dL (7-18); CALCIUM 8.5 mg/dL (8.5-10.1); CO2 29 mmol/L (21-32); CREATININE 0.9 mg/dL (0.7-1.3); GLUCOSE,RANDOM 92 mg/dL (74-106); SGOT/AST 34 U/L (15-37); SGPT/ALT 40 U/L (12-78); TOT PROT 5.8 g/dl (6.4-8.2)
[2018-05-28 10:54] LABS: EPI CELLS RARE /HPF (FEW); URINE MUCUS RARE
--- NOTE | 2018-05-28 11:49 | PN ---
BHS COWS - Scale Resting Pulse: 1= [place] 81-100 Sweatin= Chills/Flushing Restless Observation: 3= Extraneous Movement Pupil Size: 1= Pupils >than Normal Bone or Joint Aches: 2= Severe Diffuse Aches Runny Nose/ Eye Tearin= Runny Nose/Eyes GI Upset > 30mins: 2= Nausea/Diarrhea Tremor Observation of Outstretched Hands: 2= Slight Tremor Visible Yawning Observation: 1= 1-2x During Session Anxiety or Irritability: 2=Irritable/Anxious Goose Flesh Skin: 0=Smooth Skin COWS Score: 17 S Progress Note (SOAP) Subjective: alert,irritable,anxious,interrupted sleep,tremor,pain in the body and back Objective: 05/28/18 11:47 Vital Signs Temperature 98.2 F 05/28/18 09:50 Pulse Rate 84 05/28/18 09:50 Respiratory Rate 18 05/28/18 09:50 Blood Pressure 120/69 05/28/18 09:50 O2 Sat by Pulse Oximetry (%) ekg sinus bradycardia 48/min qt/qtc 466/416 no chest pain,no sob,no dizziness Laboratory Last Values WBC 5.0 K/mm3 (4.0-10.0) 05/28/18 08:00 RBC 3.81 M/mm3 (4.00-5.60) L 05/28/18 08:00 Hgb 11.7 GM/dL (11.7-16.9) 05/28/18 08:00 Hct 33.8 % (35.4-49) L 05/28/18 08:00 MCV 88.8 fl (80-96) 05/28/18 08:00 MCH 30.7 pg (25.7-33.7) 05/28/18 08:00 MCHC 34.6 g/dl (32.0-35.9) 05/28/18 08:00 RDW 15.9 % (11.9-15.9) D 05/28/18 08:00 Plt Count 190 K/MM3 (134-434) 05/28/18 08:00 MPV 7.5 fl (7.5-11.1) 05/28/18 08:00 Sodium 141 mmol/L (136-145) 05/28/18 08:00 Potassium 4.1 mmol/L (3.5-5.1) 05/28/18 08:00 Chloride 107 mmol/L (98-107) 05/28/18 08:00 Carbon Dioxide 29 mmol/L (21-32) 05/28/18 08:00 Anion Gap 5 (8-16) L 05/28/18 08:00 BUN 19 mg/dL (7-18) H 05/28/18 08:00 Creatinine 0.9 mg/dL (0.7-1.3) 05/28/18 08:00 Creat Clearance w eGFR > 60 (>60) 05/28/18 08:00 Random Glucose 92 mg/dL (74-106) D 05/28/18 08:00 Calcium 8.5 mg/dL (8.5-10.1) 05/28/18 08:00 Total Bilirubin 0.3 mg/dL (0.2-1.0) 05/28/18 08:00 AST 34 U/L (15-37) D 05/28/18 08:00 ALT 40 U/L (12-78) D 05/28/18 08:00 Alkaline Phosphatase 129 U/L (45-117) H 05/28/18 08:00 Total Protein 5.8 g/dl (6.4-8.2) L 05/28/18 08:00 Albumin 3.0 g/dl (3.4-5.0) L 05/28/18 08:00 Urine Color Yellow 05/28/18 08:30 Urine Appearance Clear 05/28/18 08:30 Urine pH 6.0 (5.0-8.0) 05/28/18 08:30 Ur Specific [place] 1.024 (1.001-1.035) 05/28/18 08:30 Urine Protein 1+ (NEGATIVE) H 05/28/18 08:30 Urine Glucose (UA) Negative (NEGATIVE) 05/28/18 08:30 Urine Ketones Negative (NEGATIVE) 05/28/18 08:30 Urine Blood Negative (NEGATIVE) 05/28/18 08:30 Urine Nitrite Negative (NEGATIVE) 05/28/18 08:30 Urine Bilirubin Negative (<2.0 mg/dL) 05/28/18 08:30 Urine Urobilinogen 4.0 e.u/dl mg/dL (0.2-1.0) 05/28/18 08:30 Ur Leukocyte Esterase Negative (NEGATIVE) 05/28/18 08:30 Urine WBC (Auto) 2 /hpf (3-5) 05/28/18 08:30 Urine RBC (Auto) 1 /hpf (0-3) 05/28/18 08:30 Ur Epithelial Cells Rare /HPF (FEW) 05/28/18 08:30 Urine Mucus Rare 05/28/18 08:30 05/28/18 11:48 rpr pending Assessment: 05/28/18 11:49 withdrawal symptom Plan: continue detox
--- NOTE | 2018-05-28 16:08 | CONSULT ---
[facility] Psychiatric Consult - Data Date of interview: 05/28/18 Admission source: [facility] Identifying data: Readmission to [facility] for this 42 y/o male seeking detox treatment on for heroin and cocaine dependence.Patient is single,a father of one,homeless,unemployed and deprived of any source of income. Substance Abuse History: Confirmed by the patient in this interview.Smoking history: Current every day smoker. Have you smoked in the past 12 months: Yes. Aproximately how many cigarettes per day: 10. Cigars Per Day: 10. Hx Chewing Tobacco Use: No. Initiated information on smoking cessation: Yes. ' Breaking Loose' booklet given: 05/27/18. - Substance & Tx. History. Hx Substance Use: Yes. Substance Use Type: Cocaine, Heroin. Hx Substance Use Treatment: Yes ([facility] - Substances Abused. Heroin. Route: Injection. Frequency: Daily. Amount used: $100. Age of first use: 19. Date of Last Use: 05/27/18. Cocaine. Route: Injection. Frequency: Daily. Amount used: $60. Age of first use: 19. Date of Last Use: 05/27/18 Medical History: Chronic lumbar pain,hepatitis C and a history of surgeries ( orthosurgery for fracture of left wrist + appendectomy). Psychiatric History: Patient denies history of psychiatric hospitalizations or suicide attempts.Declares that he was diagnosed with Bipolar Disorder (during incarceration in 2003).Maintained on a regimen of seroquel,valproate,buspirone and xanax in the past ([id number]).Dropped out of [facility] care since 2012. Mr Muhammad endorses chronic insomnia and he is currently requesting zolpidem for relief.Expresses no interest in any other psychotropic medication (with the exception of detoxification protocol). Physical/Sexual Abuse/Trauma History: Patient denies. Additional Comment: Urine Drug Screen Results: HERMINIO-Cocaine, OPI-Opiates.Noted. Mental Status Exam - Mental Status Exam Alert and Oriented to: Time, Place, Person Cognitive Function: Good Patient Appearance: Well Groomed Mood: Withdrawn, Hopeful Affect: Mood Congruent, Constricted Patient Behavior: Fatigued, Cooperative Speech Pattern: Clear Voice Loudness: Normal Thought Process: Goal Oriented Thought Disorder: Not Present Hallucinations: Denies Suicidal Ideation: Denies Homicidal Ideation: Denies Insight/Judgement: Poor Sleep: Poorly, Difficulty falling asleep Appetite: Good Muscle strength/Tone: Normal Gait/Station: Normal Psychiatric Findings - Problem List ([place] 1, 2,3) (1) Opioid dependence with withdrawal Current Visit: Yes Status: Acute (2) Cocaine dependence, uncomplicated Current Visit: Yes Status: Acute (3) Nicotine dependence Current Visit: Yes Status: Acute Qualifiers: Nicotine product type: cigarettes Substance use status: in withdrawal Qualified Code(s): F17.213 - Nicotine dependence, cigarettes, with withdrawal (4) Substance induced mood disorder Current Visit: Yes Status: Acute (5) Bipolar disorder Current Visit: No Status: Chronic Comment: As per history.Lost to follow up for several years. (6) Non compliance w medication regimen Current Visit: Yes Status: Chronic (7) Insomnia Current Visit: Yes Status: Acute - Initial Treatment Plan Initial Treatment Plan: Psychoeducation.Sleep hygiene.Detoxification.Ambien 10 mg po hs prn.Risk of parasomnias discussed in this session.Patient agrees to this careplan.Observation.
[2018-05-28] MEDS: THIAMINE HCL 100 MG TABLET (FP) PO SCH (22:30)
[2018-05-29] MEDS ORDERED: ONDANSETRON *ODT* 4 MG TABLET SL ONE (08:45)
--- NOTE | 2018-05-29 08:46 | PN ---
BHS COWS - Scale Resting Pulse: 0= [place] 80 or Below Sweatin= Chills/Flushing Restless Observation: 1= Difficult to Sit Still Pupil Size: 1= Pupils >than Normal Bone or Joint Aches: 2= Severe Diffuse Aches Runny Nose/ Eye Tearin= Nasal Congestion GI Upset > 30mins: 3= Vomiting/Diarrhea Tremor Observation of Outstretched Hands: 2= Slight Tremor Visible Yawning Observation: 1= 1-2x During Session Anxiety or Irritability: 2=Irritable/Anxious Goose Flesh Skin: 0=Smooth Skin COWS Score: 14 BHS Progress Note (SOAP) Subjective: vomiting body aches muscle cramping anxiety sweat tremor trouble sleep at night Objective: 05/29/18 12:02 Vital Signs Temperature 98.1 F 05/29/18 09:57 Pulse Rate 73 05/29/18 09:57 Respiratory Rate 16 05/29/18 09:57 Blood Pressure 118/83 05/29/18 09:57 O2 Sat by Pulse Oximetry (%) Laboratory Last Values WBC 5.0 K/mm3 (4.0-10.0) 05/28/18 08:00 RBC 3.81 M/mm3 (4.00-5.60) L 05/28/18 08:00 Hgb 11.7 GM/dL (11.7-16.9) 05/28/18 08:00 Hct 33.8 % (35.4-49) L 05/28/18 08:00 MCV 88.8 fl (80-96) 05/28/18 08:00 MCH 30.7 pg (25.7-33.7) 05/28/18 08:00 MCHC 34.6 g/dl (32.0-35.9) 05/28/18 08:00 RDW 15.9 % (11.9-15.9) D 05/28/18 08:00 Plt Count 190 K/MM3 (134-434) 05/28/18 08:00 MPV 7.5 fl (7.5-11.1) 05/28/18 08:00 Sodium 141 mmol/L (136-145) 05/28/18 08:00 Potassium 4.1 mmol/L (3.5-5.1) 05/28/18 08:00 Chloride 107 mmol/L (98-107) 05/28/18 08:00 Carbon Dioxide 29 mmol/L (21-32) 05/28/18 08:00 Anion Gap 5 (8-16) L 05/28/18 08:00 BUN 19 mg/dL (7-18) H 05/28/18 08:00 Creatinine 0.9 mg/dL (0.7-1.3) 05/28/18 08:00 Creat Clearance w eGFR > 60 (>60) 05/28/18 08:00 Random Glucose 92 mg/dL (74-106) D 05/28/18 08:00 Calcium 8.5 mg/dL (8.5-10.1) 05/28/18 08:00 Total Bilirubin 0.3 mg/dL (0.2-1.0) 05/28/18 08:00 AST 34 U/L (15-37) D 05/28/18 08:00 ALT 40 U/L (12-78) D 05/28/18 08:00 Alkaline Phosphatase 129 U/L (45-117) H 05/28/18 08:00 Total Protein 5.8 g/dl (6.4-8.2) L 05/28/18 08:00 Albumin 3.0 g/dl (3.4-5.0) L 05/28/18 08:00 Urine Color Yellow 05/28/18 08:30 Urine Appearance Clear 05/28/18 08:30 Urine pH 6.0 (5.0-8.0) 05/28/18 08:30 Ur Specific [place] 1.024 (1.001-1.035) 05/28/18 08:30 Urine Protein 1+ (NEGATIVE) H 05/28/18 08:30 Urine Glucose (UA) Negative (NEGATIVE) 05/28/18 08:30 Urine Ketones Negative (NEGATIVE) 05/28/18 08:30 Urine Blood Negative (NEGATIVE) 05/28/18 08:30 Urine Nitrite Negative (NEGATIVE) 05/28/18 08:30 Urine Bilirubin Negative (<2.0 mg/dL) 05/28/18 08:30 Urine Urobilinogen 4.0 e.u/dl mg/dL (0.2-1.0) 05/28/18 08:30 Ur Leukocyte Esterase Negative (NEGATIVE) 05/28/18 08:30 Urine WBC (Auto) 2 /hpf (3-5) 05/28/18 08:30 Urine RBC (Auto) 1 /hpf (0-3) 05/28/18 08:30 Ur Epithelial Cells Rare /HPF (FEW) 05/28/18 08:30 Urine Mucus Rare 05/28/18 08:30 RPR Titer Nonreactive (NONREACTIVE) 05/28/18 08:00 lab noted Assessment: 05/29/18 12:03 withdrawal sx Plan: continue detox increase oral fluid zofrain 4 mg sl x 1
--- NOTE | 2018-05-29 08:55 | EKG ---
Test Reason : Blood Pressure : / mmHG Vent. Rate : 048 BPM Atrial Rate : 048 BPM P-R Int : 156 ms QRS Dur : 100 ms QT Int : 466 ms P-R-T Axes : 058 071 052 degrees QTc Int : 416 ms SINUS BRADYCARDIA MINIMAL VOLTAGE CRITERIA FOR LVH, MAY BE NORMAL VARIANT BORDERLINE ECG WHEN COMPARED WITH ECG OF 24-JUL-2017 20:14, NO SIGNIFICANT CHANGE WAS FOUND Confirmed by LILLI BUSTAMANTE, JAIME ([id number]) on 05/29/2018 8:55:20 AM Referred By: Confirmed By:JAIME REEDER MD
[2018-05-29] MEDS ORDERED: METHADONE HCL 5 MG TABLET (FOR DETOX USE ONLY) PO ONE (10:00)
[2018-05-29] MEDS: diazePAM 5 MG TABLET PO PRN ×2 (10:19→18:29)
[2018-05-29] MEDS: NICOTINE 14 MG/24 HOURS TOPICAL PATCH TD SCH (10:20)
[2018-05-29] MEDS: PRENATAL VITAMINS W/ FOLIC ACID TABLET (FP) PO SCH (10:20)
[2018-05-29] MEDS: RANITIDINE HCL 150 MG TABLET (FP) PO SCH ×2 (13:29→22:03)
[2018-05-29] MEDS: ZOLPIDEM TARTRATE 5 MG TABLET PO PRN (22:02)
[2018-05-29] MEDS: THIAMINE HCL 100 MG TABLET (FP) PO SCH (22:03)
[2018-05-30] MEDS ORDERED: METHADONE HCL 5 MG TABLET (FOR DETOX USE ONLY) PO ONE (10:00)
[2018-05-30] MEDS: RANITIDINE HCL 150 MG TABLET (FP) PO SCH ×2 (10:06→22:24)
[2018-05-30] MEDS: PRENATAL VITAMINS W/ FOLIC ACID TABLET (FP) PO SCH (10:06)
[2018-05-30] MEDS: NICOTINE 14 MG/24 HOURS TOPICAL PATCH TD SCH (10:06)
--- NOTE | 2018-05-30 11:56 | PN ---
S Progress Note (SOAP) Subjective: alert,irritable,anxious,interrupted sleep,pain in the body and back, Objective: 05/30/18 11:56 Vital Signs Temperature 98.1 F 05/30/18 09:42 Pulse Rate 75 05/30/18 09:42 Respiratory Rate 18 05/30/18 09:42 Blood Pressure 125/70 05/30/18 09:42 O2 Sat by Pulse Oximetry (%) Assessment: 05/30/18 11:56 withdrawal symptom Plan: continue detox
[2018-05-30] MEDS: diazePAM 5 MG TABLET PO PRN ×2 (17:41→22:23)
[2018-05-30] MEDS: THIAMINE HCL 100 MG TABLET (FP) PO SCH (22:22)
[2018-05-30] MEDS: ZOLPIDEM TARTRATE 5 MG TABLET PO PRN (22:23)
[2018-05-31] MEDS ORDERED: METHADONE HCL 10 MG TABLET (FOR DETOX USE ONLY) PO ONE (10:00)
--- NOTE | 2018-05-31 10:15 | PN ---
S Progress Note (SOAP) Subjective: alert,irritable,anxious,interrupted sleep Objective: 05/31/18 10:13 Vital Signs Temperature 97.7 F 05/31/18 06:31 Pulse Rate 56 L 05/31/18 06:31 Respiratory Rate 18 05/31/18 06:31 Blood Pressure 95/55 05/31/18 06:31 O2 Sat by Pulse Oximetry (%) Assessment: 05/31/18 10:13 withdrawal symptom Plan: continue detox,discharge in am
[2018-05-31] MEDS: RANITIDINE HCL 150 MG TABLET (FP) PO SCH ×2 (10:29→22:20)
[2018-05-31] MEDS: PRENATAL VITAMINS W/ FOLIC ACID TABLET (FP) PO SCH (10:29)
[2018-05-31] MEDS: NICOTINE 14 MG/24 HOURS TOPICAL PATCH TD SCH (10:30)
[2018-05-31] MEDS: ZOLPIDEM TARTRATE 5 MG TABLET PO PRN (22:20)
[2018-05-31] MEDS: THIAMINE HCL 100 MG TABLET (FP) PO SCH (22:20)
[2018-06-01] MEDS ORDERED: METHADONE HCL 5 MG TABLET (FOR DETOX USE ONLY) PO ONE (06:00)
--- NOTE | 2018-06-01 08:32 | PN ---
BHS Progress Note (SOAP) Subjective: alert,no complaint Objective: 06/01/18 08:31 Vital Signs Temperature 97.5 F L 06/01/18 06:00 Pulse Rate 74 06/01/18 06:00 Respiratory Rate 18 06/01/18 06:00 Blood Pressure 123/70 06/01/18 06:00 O2 Sat by Pulse Oximetry (%) Assessment: 06/01/18 08:31 detox completed.no withdrawal sympt Plan: discharge today,follow up with after care program as arrangement
--- NOTE | 2018-06-01 08:36 | DS ---
[facility] Detox Discharge Summary Admission Date: 05/27/18 Discharge Date: 06/01/18 - History Present History: Cocaine Dependence, Opioid Dependence Additional Comments: follow up with after care program as arrangement Pertinent Past History: hepatitis c chronic low back pain anxiety and depression - Physical Exam Results Vital Signs: Vital Signs Temperature 97.5 F L 06/01/18 06:00 Pulse Rate 74 06/01/18 06:00 Respiratory Rate 18 06/01/18 06:00 Blood Pressure 123/70 06/01/18 06:00 O2 Sat by Pulse Oximetry (%) Pertinent Admission Physical Exam Findings: withdrawal signs and symptom Vital Signs Temperature 97.5 F L 06/01/18 06:00 Pulse Rate 74 06/01/18 06:00 Respiratory Rate 18 06/01/18 06:00 Blood Pressure 123/70 06/01/18 06:00 O2 Sat by Pulse Oximetry (%) Laboratory Last Values WBC 5.0 K/mm3 (4.0-10.0) 05/28/18 08:00 RBC 3.81 M/mm3 (4.00-5.60) L 05/28/18 08:00 Hgb 11.7 GM/dL (11.7-16.9) 05/28/18 08:00 Hct 33.8 % (35.4-49) L 05/28/18 08:00 MCV 88.8 fl (80-96) 05/28/18 08:00 MCH 30.7 pg (25.7-33.7) 05/28/18 08:00 MCHC 34.6 g/dl (32.0-35.9) 05/28/18 08:00 RDW 15.9 % (11.9-15.9) D 05/28/18 08:00 Plt Count 190 K/MM3 (134-434) 05/28/18 08:00 MPV 7.5 fl (7.5-11.1) 05/28/18 08:00 Sodium 141 mmol/L (136-145) 05/28/18 08:00 Potassium 4.1 mmol/L (3.5-5.1) 05/28/18 08:00 Chloride 107 mmol/L (98-107) 05/28/18 08:00 Carbon Dioxide 29 mmol/L (21-32) 05/28/18 08:00 Anion Gap 5 (8-16) L 05/28/18 08:00 BUN 19 mg/dL (7-18) H 05/28/18 08:00 Creatinine 0.9 mg/dL (0.7-1.3) 05/28/18 08:00 Creat Clearance w eGFR > 60 (>60) 05/28/18 08:00 Random Glucose 92 mg/dL (74-106) D 05/28/18 08:00 Calcium 8.5 mg/dL (8.5-10.1) 05/28/18 08:00 Total Bilirubin 0.3 mg/dL (0.2-1.0) 05/28/18 08:00 AST 34 U/L (15-37) D 05/28/18 08:00 ALT 40 U/L (12-78) D 05/28/18 08:00 Alkaline Phosphatase 129 U/L (45-117) H 05/28/18 08:00 Total Protein 5.8 g/dl (6.4-8.2) L 05/28/18 08:00 Albumin 3.0 g/dl (3.4-5.0) L 05/28/18 08:00 Urine Color Yellow 05/28/18 08:30 Urine Appearance Clear 05/28/18 08:30 Urine pH 6.0 (5.0-8.0) 05/28/18 08:30 Ur Specific [place] 1.024 (1.001-1.035) 05/28/18 08:30 Urine Protein 1+ (NEGATIVE) H 05/28/18 08:30 Urine Glucose (UA) Negative (NEGATIVE) 05/28/18 08:30 Urine Ketones Negative (NEGATIVE) 05/28/18 08:30 Urine Blood Negative (NEGATIVE) 05/28/18 08:30 Urine Nitrite Negative (NEGATIVE) 05/28/18 08:30 Urine Bilirubin Negative (<2.0 mg/dL) 05/28/18 08:30 Urine Urobilinogen 4.0 e.u/dl mg/dL (0.2-1.0) 05/28/18 08:30 Ur Leukocyte Esterase Negative (NEGATIVE) 05/28/18 08:30 Urine WBC (Auto) 2 /hpf (3-5) 05/28/18 08:30 Urine RBC (Auto) 1 /hpf (0-3) 05/28/18 08:30 Ur Epithelial Cells Rare /HPF (FEW) 05/28/18 08:30 Urine Mucus Rare 05/28/18 08:30 RPR Titer Nonreactive (NONREACTIVE) 05/28/18 08:00 - Treatment Hospital Course: Detox Protocol Followed - Medication Discharge Medications: Ambulatory Orders NK [No Known Home Medication] 09/09/15 - Diagnosis (1) Opioid dependence with withdrawal Current Visit: Yes Status: Acute (2) Anxiety Current Visit: Yes Status: Chronic (3) Cocaine dependence, uncomplicated Current Visit: Yes Status: Acute (4) Depression Current Visit: Yes Status: Chronic Qualifiers: Depression Type: unspecified Qualified Code(s): F32.9 - Major depressive disorder, single episode, unspecified (5) Hepatitis C Current Visit: Yes Status: Chronic Qualifiers: Viral hepatitis chronicity: chronic Hepatic coma status: without hepatic coma Qualified Code(s): B18.2 - Chronic viral hepatitis C (6) Chronic low back pain Current Visit: No Status: Chronic - AMA Did Patient Leave Against Medical Advice: No
[2018-06-01 09:24] VITALS: BP 115/68; PULSE 75; TEMP 98.2
== END 2018-06-01 08:58 | disposition home or self-care (01) | DRG 773 ==
LOC: YASAS 15:51 → Y6N 21:18
PROVIDERS: ADMIT Surgery; ATTEND Surgery
PROC: HZ2ZZZZ Detoxification Services for Substance Abuse Treatment (ICD-10-PCS; principal; 2018-05-27)
DX: F11.23 Opioid dependence with withdrawal (principal); F14.20 Cocaine dependence, uncomplicated; F17.213 Nicotine dependence, cigarettes, with withdrawal; F41.9 Anxiety disorder, unspecified; F32.9 Major depressive disorder, single episode, unspecified; F19.24 Other psychoactive substance dependence with psychoactive substance-induced mood disorder; B18.2 Chronic viral hepatitis C; M54.5 Low back pain; G89.29 Other chronic pain; R00.1 Bradycardia, unspecified; Z91.013 Allergy to seafood; Z91.14 Patient's other noncompliance with medication regimen; Z59.0 Homelessness
CPT/HCPCS: 36415; 80053; 81003; 81015; 85027; 86593; 93005; 93010; Q0162

== ENCOUNTER 2018-09-14 12:59 | Inpatient (IN) | payer OTHER ==
[2018-09-14 14:55] VITALS: BMI 22.7
--- NOTE | 2018-09-14 17:38 | HP ---
COWS - Scale Resting Pulse: 0= [place] 80 or Below Sweatin=Flushed/Facial Moisture Restless Observation: 1= Difficult to Sit Still Pupil Size: 2= Moderately Dilated Bone or Joint Aches: 1= Mild Discomfort Runny Nose/ Eye Tearin= Runny Nose/Eyes GI Upset > 30mins: 2= Nausea/Diarrhea (No diarrhea) Tremor Observation: 4= Gross Tremor/Twitching Yawning Observation: 1= 1-2x During Session Anxiety or Irritability: 1=Feels Anxious/Irritable Goose Flesh Skin: 0=Smooth Skin COWS Score: 16 CIWA Score - Admission Criteria OASAS Guidelines: Admission for Medically Managed Detox: Requires at least one of the followin. CIWA greater than 12 2. Seizures within the past 24 hours 3. Delirium tremens within the past 24 hours 4. Hallucinations within the past 24 hours 5. Acute intervention needed for co occurring medical disorder 6. Acute intervention needed for co occurring psychiatric disorder 7. Severe withdrawal that cannot be handled at a lower level of care (continued vomiting, continued diarrhea, abnormal vital signs) requiring intravenous medication and/or fluids 8. Admission ROS [facility] - [facility] Chief Complaint: Here for heroin and cocaine withdrawal. Allergies/Adverse Reactions: Allergies Allergy/AdvReac Type Severity Reaction Status Date / Time No Known Drug Allergies Allergy Verified 09/14/18 16:10 History of Present Illness: Heroin use since age 19. IVDU. States does not share needles or works. Cocaine use since age 19. Nicotine use since age 14. Denies seizures/blackouts/overdose. Longest sobriety x 5 years. Hx: Herniated disc, insomnia, bipolar-anxiety. Denies current medications. PDMP - negative. Exam Limitations: No Limitations - Ebola screening Have you traveled outside of the country in the last 21 days: No Have you had contact with anyone from an Ebola affected area: No Have you been sick,other than usual withdrawal symptoms: No Do you have a fever: No - Review of Systems Constitutional: Chills, Diaphoresis, Changes in sleep (Difficulty falling and staying asleep) EENT: reports: Nose Congestion Respiratory: reports: No Symptoms reported Cardiac: reports: No Symptoms Reported GI: reports: Nausea : reports: No Symptoms Reported Musculoskeletal: reports: Back Pain (Chronic intermittent achy pain goes up to a "6". Thinks withdrawal is affecting back right now.) Integumentary: reports: No Symptoms Reported Neuro: reports: Numbness ((R) thigh area), Tremors Endocrine: reports: No Symptoms Reported Hematology: reports: No Symptoms Reported Psychiatric: reports: Judgement Intact, Orientated x3, Agitated (Denies thoughts of harming self or others.), Anxious Patient History - Patient Medical History Hx Anemia: No Hx Asthma: No Hx Chronic Obstructive Pulmonary Disease (COPD): No Hx Cancer: No Hx Cardiac Disorders: No Hx Congestive Heart Failure: No Hx Hypertension: No Hx Hypercholesterolemia: No Hx Pacemaker: No HX Cerebrovascular Accident: No Hx Seizures: No Hx Dementia: No Hx Diabetes: No Hx Gastrointestinal Disorders: No Hx Liver Disease: No Hx Genitourinary Disorders: No Hx Sexually Transmitted Disorders: No Hx Renal Disease (ESRD): No Hx Thyroid Disease: No Hx Human Immunodeficiency Virus (HIV): No (2018 neg) Hx Hepatitis C: Yes (TREATED IN 2015 WITH HARVONI- Relapsed) Hx Depression: No Hx Suicide Attempt: No Hx Bipolar Disorder: Yes (Not on medication) Hx Schizophrenia: No - Patient Surgical History Past Surgical History: Yes Hx Neurologic Surgery: No Hx Cataract Extraction: No Hx Cardiac Surgery: No Hx Lung Surgery: No Hx Breast Surgery: No Hx Breast Biopsy: No Hx Abdominal Surgery: No Hx Appendectomy: Yes (in 1990) Hx Cholecystectomy: No Hx Genitourinary Surgery: No Hx Section: No Hx Orthopedic Surgery: No Anesthesia Reaction: No - PPD History Previous Implant?: Yes Documented Results: Negative w/proof Implanted On Prior [facility] Admission?: Yes Date: 07/26/17 Results: 0 mm PPD to be Administered?: Yes - Smoking Cessation Smoking history: Current every day smoker Have you smoked in the past 12 months: Yes Aproximately how many cigarettes per day: 10 Cigars Per Day: 10 Hx Chewing Tobacco Use: No Initiated information on smoking cessation: Yes 'Breaking Loose' booklet given: 09/14/18 - Substance & Tx. History Hx Alcohol Use: No Hx Substance Use: Yes Substance Use Type: Cocaine, Heroin Hx Substance Use Treatment: Yes (detox, residential) - Substances Abused Heroin Route: Injection Frequency: Daily Amount used: 10-15 bags Age of first use: 19 Date of Last Use: 09/14/18 Cocaine Route: Injection Frequency: Daily Amount used: $60 Age of first use: 19 Date of Last Use: 09/14/18 Family Disease History - Family Disease History Family Disease History: Diabetes: Grandparent, [place]: Grandparent, Other: Father ( substance) Admission Physical Exam [facility] - Vital Signs Vital Signs: Vital Signs - 24 hr 09/14/18 13:43 Temperature 98.1 F Pulse Rate 73 Respiratory 18 Rate Blood Pressure 118/65 - Physical General Appearance: Yes: Mild Distress, Tremorous, Sweating, Anxious HEENTM: Yes: EOMI, Normal Voice, DIANA (Pupils = 4 mm), Pharynx Normal, Rhinorrhea (clear nasal discharge) Respiratory: Yes: Chest Non-Tender, Lungs Clear, Normal Breath Sounds, No Respiratory Distress Neck: Yes: No masses,lesions,Nodules, Supple Breast: Yes: Breast Exam Deferred Cardiology: Yes: Regular Rhythm, Regular Rate, S1, S2 Abdominal: Yes: Non Tender, Flat, Soft, Increased Bowel Sounds Genitourinary: Yes: Within Normal Limits Back: Yes: Normal Inspection Musculoskeletal: Yes: full range of Motion, Gait Steady Extremities: Yes: Normal Capillary Refill, Normal Range of Motion, Non-Tender, Tremors (Gross tremors hands when arms extended) Neurological: Yes: dispatch clerk II-XII NML intact, Fully Oriented, Alert, Motor Strength 5/5, Normal Mood/Affect, Normal Response Integumentary: Yes: Normal Color, Dry, Warm Lymphatic: Yes: Within Normal Limits - Diagnostic (1) Cocaine dependence, uncomplicated Current Visit: Yes Status: Chronic (2) Nicotine dependence Current Visit: Yes Status: Chronic Qualifiers: Nicotine product type: cigarettes Substance use status: uncomplicated Qualified Code(s): F17.210 - Nicotine dependence, cigarettes, uncomplicated (3) Opioid dependence with withdrawal Current Visit: Yes Status: Acute (4) Chronic low back pain Current Visit: Yes Status: Chronic Qualifiers: Back pain laterality: midline Sciatica presence: unspecified whether sciatica present Qualified Code(s): M54.5 - Low back pain; G89.29 - Other chronic pain (5) Insomnia Current Visit: Yes Status: Chronic Qualifiers: Insomnia type: unspecified Qualified Code(s): G47.00 - Insomnia, unspecified Cleared for Admission [facility] - Detox or Rehab [facility] Level of Care: Medically Managed Detox Regimen/Protocol: Methadone [facility] Breath Alcohol Content Breath Alcohol Content: 0 Urine Drug Screen - Results Drug Screen Negative: No Urine Drug Screen Results: HERMINIO-Cocaine, OPI-Opiates, MTD-Methadone, FEN-Fentanyl
[2018-09-14] MEDS ORDERED: MAG HYDROX/AL HYDROX/SIMETH 30 ML UNIT-DOSE CUP PO PRN (18:06)
[2018-09-14] MEDS ORDERED: ACETAMINOPHEN 325 MG TABLET (FP) PO PRN (18:06)
[2018-09-14] MEDS ORDERED: MENTHOL/PHENOL 1 EACH UD MM PRN (18:06)
[2018-09-14] MEDS ORDERED: MAGNESIUM HYDROX 2400MG/30ML ORAL SUSPENSION 30 ML CUP PO PRN (18:06)
[2018-09-14] MEDS ORDERED: IBUPROFEN 400 MG TABLET (FP) PO PRN (18:06)
[2018-09-14] MEDS ORDERED: LOPERAMIDE HCL 2 MG CAPSULE PO PRN (18:06)
[2018-09-14] MEDS ORDERED: MAGNESIUM CITRATE 300 ML BOTTLE PO PRN (18:06)
[2018-09-14] MEDS ORDERED: METHADONE HCL 10 MG TABLET (FOR DETOX USE ONLY) PO ONE ×2 (18:06→23:00)
[2018-09-14] MEDS: diazePAM 5 MG TABLET PO PRN (21:12)
[2018-09-14] MEDS: THIAMINE HCL 100 MG TABLET (FP) PO SCH (21:12)
[2018-09-15 01:48] LABS: URINE APPEARANCE CLEAR; URINE BILIRUBIN NEGATIVE (<2.0 mg/dL); URINE COLOR YELLOW; URINE GLUCOSE (UA) NEGATIVE (NEGATIVE); URINE KETONE NEGATIVE (NEGATIVE); URINE LEUK ESTERASE NEGATIVE (NEGATIVE); URINE NITRITE NEGATIVE (NEGATIVE); URINE PROTEIN NEGATIVE (NEGATIVE); URINE UROBILINOGEN NEGATIVE mg/dL (0.2-1.0)
[2018-09-15] MEDS: diazePAM 5 MG TABLET PO PRN ×3 (09:07→22:06)
[2018-09-15] MEDS ORDERED: METHADONE HCL 10 MG TABLET (FOR DETOX USE ONLY) PO ONE (10:00)
[2018-09-15] MEDS: NICOTINE 21 MG/24 HOURS TOPICAL PATCH TD SCH (10:25)
[2018-09-15] MEDS: PRENATAL VITAMINS W/ FOLIC ACID TABLET (FP) PO SCH (10:26)
[2018-09-15] MEDS: NICOTINE POLACRILEX 2 MG GUM BC PRN ×2 (10:27→22:08)
[2018-09-15 10:28] LABS: HEMATOCRIT 34.8 % (35.4-49); HEMOGLOBIN 12.4 GM/dL (11.7-16.9); MCH 31.6 pg (25.7-33.7); MCHC 35.6 g/dl (32.0-35.9); MEAN CELL VOLUME 88.7 fl (80-96); MEAN PLT VOLUME 7.4 fl (7.5-11.1); PLATELET COUNT 236 K/MM3 (134-434); RBC 3.92 M/mm3 (4.00-5.60); RDW 14.2 % (11.9-15.9); WHITE BLOOD COUNT 4.7 K/mm3 (4.0-10.0)
[2018-09-15 11:01] LABS: ALBUMIN 2.9 g/dl (3.4-5.0); ALK PHOS 145 U/L (45-117); ANION GAP 10 MMOL/L (8-16); BILIRUBIN,TOTAL 0.6 mg/dL (0.2-1); BLOOD UREA NITROGEN 18 mg/dL (7-18); CALCIUM 8.1 mg/dL (8.5-10.1); CHLORIDE 107 mmol/L (98-107); CO2 25 mmol/L (21-32); CREATININE 0.8 mg/dL (0.55-1.3); GLUCOSE,RANDOM 96 mg/dL (74-106); POTASSIUM 4.1 mmol/L (3.5-5.1); SGOT/AST 32 U/L (15-37); SGPT/ALT 51 U/L (13-61); SODIUM 141 mmol/L (136-145); TOT PROT 5.8 g/dl (6.4-8.2)
--- NOTE | 2018-09-15 12:43 | PN ---
[facility] COWS - Scale Resting Pulse: 0= [place] 80 or Below Sweatin= Chills/Flushing Restless Observation: 3= Extraneous Movement Pupil Size: 0= Normal to Room Light Bone or Joint Aches: 2= Severe Diffuse Aches Runny Nose/ Eye Tearin= Runny Nose/Eyes GI Upset > 30mins: 3= Vomiting/Diarrhea Tremor Observation of Outstretched Hands: 2= Slight Tremor Visible Yawning Observation: 1= 1-2x During Session Anxiety or Irritability: 2=Irritable/Anxious Goose Flesh Skin: 0=Smooth Skin COWS Score: 16 S Progress Note (SOAP) Subjective: Chills, sweating, stomach ache Objective: 09/15/18 12:35 Last Vital Signs Temp Pulse Resp BP Pulse Ox 95.0 F L 78 18 106/63 09/15/18 09:10 09/15/18 09:10 09/15/18 09:10 09/15/18 09:10 Laboratory Tests 09/14/18 09/15/18 09/15/18 22:48 07:50 07:50 WBC 4.7 RBC 3.92 L Hgb 12.4 Hct 34.8 L MCV 88.7 MCH 31.6 MCHC 35.6 RDW 14.2 D Plt Count 236 D MPV 7.4 L Sodium 141 Potassium 4.1 Chloride 107 Carbon Dioxide 25 Anion Gap 10 BUN 18 Creatinine 0.8 Creat Clearance w eGFR > 60 Random Glucose 96 Calcium 8.1 L Total Bilirubin 0.6 AST 32 ALT 51 Alkaline Phosphatase 145 H Total Protein 5.8 L Albumin 2.9 L Urine Color Yellow Urine Appearance Clear Urine pH 6.0 Ur Specific [place] 1.014 Urine Protein Negative Urine Glucose (UA) Negative Urine Ketones Negative Urine Blood Negative Urine Nitrite Negative Urine Bilirubin Negative Urine Urobilinogen Negative Ur Leukocyte Esterase Negative RPR Titer 09/15/18 07:50 WBC RBC Hgb Hct MCV MCH MCHC RDW Plt Count MPV Sodium Potassium Chloride Carbon Dioxide Anion Gap BUN Creatinine Creat Clearance w eGFR Random Glucose Calcium Total Bilirubin AST ALT Alkaline Phosphatase Total Protein Albumin Urine Color Urine Appearance Urine pH Ur Specific [place] Urine Protein Urine Glucose (UA) Urine Ketones Urine Blood Urine Nitrite Urine Bilirubin Urine Urobilinogen Ur Leukocyte Esterase RPR Titer Nonreactive Labs reviewed Assessment: 09/15/18 12:36 Withdrawal symptoms Plan: Continue detox Encouraged PO water intake
[2018-09-15] MEDS: MELATONIN 5 MG TABLETS PO PRN (22:06)
[2018-09-15] MEDS: THIAMINE HCL 100 MG TABLET (FP) PO SCH (22:06)
[2018-09-16] MEDS ORDERED: METHADONE HCL 5 MG TABLET (FOR DETOX USE ONLY) PO ONE (10:00)
[2018-09-16] MEDS: diazePAM 5 MG TABLET PO PRN ×3 (10:27→22:13)
[2018-09-16] MEDS: PRENATAL VITAMINS W/ FOLIC ACID TABLET (FP) PO SCH (10:27)
[2018-09-16] MEDS: NICOTINE 21 MG/24 HOURS TOPICAL PATCH TD SCH (10:29)
--- NOTE | 2018-09-16 12:52 | PN ---
[facility] COWS - Scale Resting Pulse: 0= [place] 80 or Below Sweatin= Chills/Flushing Restless Observation: 1= Difficult to Sit Still Pupil Size: 2= Moderately Dilated Bone or Joint Aches: 2= Severe Diffuse Aches Runny Nose/ Eye Tearin= None GI Upset > 30mins: 2= Nausea/Diarrhea Tremor Observation of Outstretched Hands: 2= Slight Tremor Visible Yawning Observation: 0= None Anxiety or Irritability: 2=Irritable/Anxious Goose Flesh Skin: 3=Piloerection COWS Score: 15 BHS Progress Note (SOAP) Subjective: PATIENT C/O CHILLS, ANXIETY, OPIOD CRAVINGS, NAUSEA/DIARRHEA Objective: 09/16/18 12:49 Vital Signs Temperature 97 F L 09/16/18 06:22 Pulse Rate 53 L 09/16/18 06:22 Respiratory Rate 18 09/16/18 06:22 Blood Pressure 92/56 L 09/16/18 06:22 O2 Sat by Pulse Oximetry (%) Laboratory Tests 09/14/18 09/15/18 09/15/18 22:48 07:50 07:50 WBC 4.7 RBC 3.92 L Hgb 12.4 Hct 34.8 L MCV 88.7 MCH 31.6 MCHC 35.6 RDW 14.2 D Plt Count 236 D MPV 7.4 L Sodium 141 Potassium 4.1 Chloride 107 Carbon Dioxide 25 Anion Gap 10 BUN 18 Creatinine 0.8 Creat Clearance w eGFR > 60 Random Glucose 96 Calcium 8.1 L Total Bilirubin 0.6 AST 32 ALT 51 Alkaline Phosphatase 145 H Total Protein 5.8 L Albumin 2.9 L Urine Color Yellow Urine Appearance Clear Urine pH 6.0 Ur Specific [place] 1.014 Urine Protein Negative Urine Glucose (UA) Negative Urine Ketones Negative Urine Blood Negative Urine Nitrite Negative Urine Bilirubin Negative Urine Urobilinogen Negative Ur Leukocyte Esterase Negative RPR Titer 09/15/18 07:50 WBC RBC Hgb Hct MCV MCH MCHC RDW Plt Count MPV Sodium Potassium Chloride Carbon Dioxide Anion Gap BUN Creatinine Creat Clearance w eGFR Random Glucose Calcium Total Bilirubin AST ALT Alkaline Phosphatase Total Protein Albumin Urine Color Urine Appearance Urine pH Ur Specific [place] Urine Protein Urine Glucose (UA) Urine Ketones Urine Blood Urine Nitrite Urine Bilirubin Urine Urobilinogen Ur Leukocyte Esterase RPR Titer Nonreactive PE; SKIN: + GOOSEFLESH ALERT AND ORIENTED X 3 EXT FULL ROM, +TREMORS ANXIOUS, PACING ON UNIT WORRIED ABOUT OPIOD CRAVINGS Assessment: 09/16/18 12:50 WITHDRAWAL SX Plan: CONTINUE DETOX REGIMEN ENCOURAGE ORAL FLUIDS PATIENT TO SPEAK TO COUNSELOR REGARDING REHAB CONTINUE TO MONITOR
[2018-09-16] MEDS: THIAMINE HCL 100 MG TABLET (FP) PO SCH (22:12)
[2018-09-16] MEDS: MELATONIN 5 MG TABLETS PO PRN (22:13)
[2018-09-17] MEDS ORDERED: METHADONE HCL 5 MG TABLET (FOR DETOX USE ONLY) PO ONE (10:00)
[2018-09-17] MEDS: diazePAM 5 MG TABLET PO PRN ×2 (10:10→17:23)
[2018-09-17] MEDS: PRENATAL VITAMINS W/ FOLIC ACID TABLET (FP) PO SCH (10:10)
[2018-09-17] MEDS: NICOTINE 21 MG/24 HOURS TOPICAL PATCH TD SCH (10:11)
--- NOTE | 2018-09-17 16:47 | PN ---
S Progress Note (SOAP) Subjective: no complaints offered Objective: 09/17/18 16:45 A & O x 3 Anxious Slightly tremulous Vital Signs Temperature 98.4 F 09/17/18 14:09 Pulse Rate 84 09/17/18 14:09 Respiratory Rate 18 09/17/18 14:09 Blood Pressure 120/77 09/17/18 14:09 O2 Sat by Pulse Oximetry (%) Assessment: 09/17/18 16:46 withdrawals Plan: continue detox
[2018-09-17] MEDS: NICOTINE POLACRILEX 2 MG GUM BC PRN (17:25)
[2018-09-17] MEDS: THIAMINE HCL 100 MG TABLET (FP) PO SCH (22:03)
[2018-09-17] MEDS: MELATONIN 5 MG TABLETS PO PRN (22:04)
[2018-09-18] MEDS: NICOTINE 21 MG/24 HOURS TOPICAL PATCH TD SCH (09:46)
[2018-09-18] MEDS: PRENATAL VITAMINS W/ FOLIC ACID TABLET (FP) PO SCH (09:46)
[2018-09-18] MEDS ORDERED: METHADONE HCL 10 MG TABLET (FOR DETOX USE ONLY) PO ONE (10:00)
[2018-09-18] MEDS: NICOTINE POLACRILEX 2 MG GUM BC PRN (10:16)
--- NOTE | 2018-09-18 12:53 | CONSULT ---
[facility] Psychiatric Consult - Data Date of interview: 09/18/18 Admission source: [facility] Identifying data: Patient is a 43 y/o male single, unemployed, homeless , father ffa 5 y/o girl living in [place] , has no source of income Substance Abuse History: Admitted to Detox for use of Heroin and Cocaine . He uses 5 bags of heroin daily and cocaine. Refer to addiction counselor note for more detailed drug history Medical History: Chronic back pain due to herniated disc lower back and neck , Hep C. Surgeries: Appendectomy, Fracture left foot Psychiatric History: He reports a history of Bipolar disorder co-occurring with anxiety, he has no prior psychiatric hospitalizations with the exception of psychiatric emergency room visits and community clinics. He has been off neuroleptic medicatoions treatment since 2014. Past medciated with Seroquel, Depakote, Xanax, Zoloft and Remeron. Does not need medciations at thios time. He feels sad and anxious over his current situation, denies psyschosis, mood swings denies suicidal or homicidal ideation. C/o insomnia. Physical/Sexual Abuse/Trauma History: Denies history of abuse Additional Comment: History of incarceration in 2003 Mental Status Exam - Mental Status Exam Alert and Oriented to: Place, Person Cognitive Function: Grossly Intact Patient Appearance: Disheveled Mood: Sad Affect: Appropriate Patient Behavior: Appropriate, Cooperative Speech Pattern: Appropriate Voice Loudness: Normal Thought Process: Intact Thought Disorder: Not Present Hallucinations: Denies Suicidal Ideation: Denies Homicidal Ideation: Denies Insight/Judgement: Poor Sleep: Poorly Appetite: Fair Muscle strength/Tone: Normal Gait/Station: Normal Psychiatric Findings - Problem List ([place] 1, 2,3) (1) Opioid dependence with withdrawal Current Visit: Yes Status: Acute (2) Chronic low back pain Current Visit: Yes Status: Chronic Qualifiers: Back pain laterality: midline Sciatica presence: unspecified whether sciatica present Qualified Code(s): M54.5 - Low back pain; G89.29 - Other chronic pain (3) Cocaine dependence, uncomplicated Current Visit: Yes Status: Chronic (4) Insomnia Current Visit: Yes Status: Chronic Qualifiers: Insomnia type: unspecified Qualified Code(s): G47.00 - Insomnia, unspecified (5) Substance induced mood disorder Current Visit: No Status: Acute (6) Substance or medication-induced sleep disorder Current Visit: No Status: Acute (7) Anxiety Current Visit: No Status: Chronic (8) Bipolar disorder Current Visit: No Status: Chronic Comment: As per history.Lost to follow up for several years. (9) Depression Current Visit: No Status: Chronic Qualifiers: Depression Type: unspecified Qualified Code(s): F32.9 - Major depressive disorder, single episode, unspecified - Initial Treatment Plan Initial Treatment Plan: Continue Detox treatment. Psychoeducation. Vistaril 50 mg po q hs. Monitor progress
--- NOTE | 2018-09-18 16:15 | PN ---
BHS Progress Note (SOAP) Subjective: Diarrhea, stomach ache, chills, nausea, sweating, interrupted sleep, lightheadedness Objective: 09/18/18 16:10 Last Vital Signs Temp Pulse Resp BP Pulse Ox 96.8 F L 75 16 93/53 L 09/18/18 13:50 09/18/18 13:50 09/18/18 13:50 09/18/18 13:50 Hypotension noted Laboratory Tests 09/14/18 09/15/18 09/15/18 22:48 07:50 07:50 WBC 4.7 RBC 3.92 L Hgb 12.4 Hct 34.8 L MCV 88.7 MCH 31.6 MCHC 35.6 RDW 14.2 D Plt Count 236 D MPV 7.4 L Sodium 141 Potassium 4.1 Chloride 107 Carbon Dioxide 25 Anion Gap 10 BUN 18 Creatinine 0.8 Creat Clearance w eGFR > 60 Random Glucose 96 Calcium 8.1 L Total Bilirubin 0.6 AST 32 ALT 51 Alkaline Phosphatase 145 H Total Protein 5.8 L Albumin 2.9 L Urine Color Yellow Urine Appearance Clear Urine pH 6.0 Ur Specific [place] 1.014 Urine Protein Negative Urine Glucose (UA) Negative Urine Ketones Negative Urine Blood Negative Urine Nitrite Negative Urine Bilirubin Negative Urine Urobilinogen Negative Ur Leukocyte Esterase Negative RPR Titer 09/15/18 07:50 WBC RBC Hgb Hct MCV MCH MCHC RDW Plt Count MPV Sodium Potassium Chloride Carbon Dioxide Anion Gap BUN Creatinine Creat Clearance w eGFR Random Glucose Calcium Total Bilirubin AST ALT Alkaline Phosphatase Total Protein Albumin Urine Color Urine Appearance Urine pH Ur Specific [place] Urine Protein Urine Glucose (UA) Urine Ketones Urine Blood Urine Nitrite Urine Bilirubin Urine Urobilinogen Ur Leukocyte Esterase RPR Titer Nonreactive Labs reviewed Assessment: 09/18/18 16:11 Withdrawal symptoms Noted with hypotension Plan: Continue detox Hypotension: symptomatic (c/o lightheadedness), encouraged PO water intake, continue to monitor Patient for discharge tomorrow. Consider holding discharge due to increased withdrawal symptoms.
[2018-09-18] MEDS: MELATONIN 5 MG TABLETS PO PRN (22:06)
[2018-09-18] MEDS: THIAMINE HCL 100 MG TABLET (FP) PO SCH (22:06)
[2018-09-19] MEDS ORDERED: METHADONE HCL 5 MG TABLET (FOR DETOX USE ONLY) PO ONE (06:00)
[2018-09-19] MEDS: NICOTINE 21 MG/24 HOURS TOPICAL PATCH TD SCH (10:17)
[2018-09-19] MEDS: PRENATAL VITAMINS W/ FOLIC ACID TABLET (FP) PO SCH (10:17)
--- NOTE | 2018-09-19 11:37 | PN ---
BHS Progress Note (SOAP) Subjective: WORRIED ABOUT GETTING INTO REHAB . Objective: 09/19/18 11:34 A & O X 3 IN [place] i[place] nO dISTRESS Last Vital Signs Temp Pulse Resp BP Pulse Ox 98.5 F 80 18 106/62 09/19/18 09:05 09/19/18 09:05 09/19/18 09:05 09/19/18 09:05 Assessment: 09/19/18 11:37 WITHDRAWAL SX Plan: FOR DISCHARGE
[2018-09-19] MEDS ORDERED: CYCLOBENZAPRINE HCL 5 MG TABLET PO ONE (11:45)
--- NOTE | 2018-09-19 11:45 | DS ---
[facility] Detox Discharge Summary Admission Date: 09/14/18 Discharge Date: 09/19/18 - History Additional Comments: Pt for discharge after having completed detox. Pt admits he has a high risk for relapse will do aftercare @ [facility] intends to go to [facility] afterwards - Physical Exam Results Vital Signs: Vital Signs Temperature 98.5 F 09/19/18 09:05 Pulse Rate 80 09/19/18 09:05 Respiratory Rate 18 09/19/18 09:05 Blood Pressure 106/62 09/19/18 09:05 O2 Sat by Pulse Oximetry (%) Pertinent Admission Physical Exam Findings: Withdrawal sx - Treatment Hospital Course: Detox Protocol Followed, Detoxed Safely, Responded well, Discharged Condition Good, Rehab Referral Accepted Patient has Accepted a Rehab Referral to: [facility] - Medication Discharge Medications: Ambulatory Orders NK [No Known Home Medication] 09/09/15 - Diagnosis (1) Opioid dependence with withdrawal Current Visit: Yes Status: Acute (2) Chronic low back pain Current Visit: Yes Status: Chronic Qualifiers: Back pain laterality: midline Sciatica presence: unspecified whether sciatica present Qualified Code(s): M54.5 - Low back pain; G89.29 - Other chronic pain (3) Cocaine dependence, uncomplicated Current Visit: Yes Status: Chronic (4) Insomnia Current Visit: Yes Status: Chronic Qualifiers: Insomnia type: unspecified Qualified Code(s): G47.00 - Insomnia, unspecified (5) Nicotine dependence Current Visit: Yes Status: Chronic Qualifiers: Nicotine product type: cigarettes Substance use status: uncomplicated Qualified Code(s): F17.210 - Nicotine dependence, cigarettes, uncomplicated (6) Substance induced mood disorder Current Visit: No Status: Acute (7) Substance or medication-induced sleep disorder Current Visit: No Status: Acute (8) Anxiety Current Visit: No Status: Chronic (9) Bipolar disorder Current Visit: No Status: Chronic (10) Depression Current Visit: No Status: Chronic Qualifiers: Depression Type: unspecified Qualified Code(s): F32.9 - Major depressive disorder, single episode, unspecified (11) Hepatitis C Current Visit: No Status: Chronic Qualifiers: Viral hepatitis chronicity: chronic Hepatic coma status: without hepatic coma Qualified Code(s): B18.2 - Chronic viral hepatitis C (12) Non compliance w medication regimen Current Visit: No Status: Chronic - AMA Did Patient Leave Against Medical Advice: No
[2018-09-19 18:02] VITALS: BP 90/51; PULSE 83; TEMP 97.4
== END 2018-09-19 17:42 | disposition other institution (70) | DRG 773 ==
LOC: YASAS 12:59 → Y3N 19:39 → UNDOADMIN 19:39 → UNDODISIN 09-19 17:42
PROVIDERS: ADMIT Neuromusculoskeletal Medicine & OMM; ATTEND Neuromusculoskeletal Medicine & OMM
PROC: HZ2ZZZZ Detoxification Services for Substance Abuse Treatment (ICD-10-PCS; principal; 2018-09-14)
DX: F11.23 Opioid dependence with withdrawal (principal); F14.20 Cocaine dependence, uncomplicated; F17.210 Nicotine dependence, cigarettes, uncomplicated; F19.24 Other psychoactive substance dependence with psychoactive substance-induced mood disorder; F19.282 Other psychoactive substance dependence with psychoactive substance-induced sleep disorder; F41.9 Anxiety disorder, unspecified; F31.9 Bipolar disorder, unspecified; F32.9 Major depressive disorder, single episode, unspecified; B18.2 Chronic viral hepatitis C; G47.00 Insomnia, unspecified; M54.5 Low back pain; G89.29 Other chronic pain; I95.9 Hypotension, unspecified; Z91.14 Patient's other noncompliance with medication regimen; Z59.0 Homelessness
CPT/HCPCS: 36415; 80053; 81003; 85027; 86593

== ENCOUNTER 2018-09-19 19:12 | Inpatient (IN) | payer OTHER ==
--- NOTE | 2018-09-19 20:38 | HP ---
[facility] Rehab Assess/Revision - Admission History Admitted to Rehab from: [facility] Date of Admission to Rehab: 09/19/18 - Findings Detox History & Physical reviewed: Yes Concur with findings: Yes Inpatient Rehab Admission - Initial Determination Are CD services needed?: Yes Free of communicable disease: Yes Not in need of hospitalization: Yes - Rehab Admission Criteria Previous failed treatment: Yes Poor recovery environment: Yes Comorbidities: Yes Lacks judgement: No Patient is meeting Inpatient Rehab admission criteria:: Yes
[2018-09-19] MEDS ORDERED: ACETAMINOPHEN 325 MG TABLET (FP) PO PRN (20:41)
[2018-09-19] MEDS ORDERED: MAGNESIUM CITRATE 300 ML BOTTLE PO PRN (20:41)
[2018-09-19] MEDS ORDERED: MAGNESIUM HYDROX 2400MG/30ML ORAL SUSPENSION 30 ML CUP PO PRN (20:41)
[2018-09-19] MEDS ORDERED: MENTHOL/PHENOL 1 EACH UD MM PRN (20:41)
[2018-09-19] MEDS ORDERED: MAG HYDROX/AL HYDROX/SIMETH 30 ML UNIT-DOSE CUP PO PRN (20:41)
[2018-09-19] MEDS ORDERED: hydrOXYzine PAMOATE 50 MG CAPSULE (FP) PO PRN (20:41)
[2018-09-19] MEDS ORDERED: LOPERAMIDE HCL 2 MG CAPSULE PO PRN (20:41)
[2018-09-19] MEDS ORDERED: CYCLOBENZAPRINE HCL 10 MG TABLET (FP) PO PRN (20:42)
[2018-09-19] MEDS: IBUPROFEN 400 MG TABLET (FP) PO PRN (21:31)
[2018-09-19] MEDS: MELATONIN 5 MG TABLETS PO PRN (21:31)
[2018-09-19] MEDS: THIAMINE HCL 100 MG TABLET (FP) PO SCH (21:32)
[2018-09-20] MEDS ORDERED: ONDANSETRON *ODT* 4 MG TABLET SL PRN (09:44)
--- NOTE | 2018-09-20 09:45 | PN ---
[facility] Progress Note Note: PT DISCHARGED FROM DETOX ON 09/19/18 FOR OPIOID DEPENDENCE AND NOW C/O NAUSEA, VOMITING,DIARRHEA,CHILLS, NASAL CONGESTION AND SWEATS. ALSO C/O FATIGUE. 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 PT STATES HE WAS ON MMTP BUT MEDICAL INSURANCE ISSUES STALLED HIS CONTINUATION AND HE STARTED USING ON THE STREETS BEFORE COMING INTO DETOX TREATMENT. STATES HE IS OK WITH HIS INSURANCE NOW AND WILL PURSUE MMTP OPTION AGAIN. ALERT O X 3. Vital Signs 09/20/18 09/20/18 03:30 06:42 Temperature 97.3 F L Pulse Rate 58 L Respiratory 18 18 Rate Blood Pressure 101/68 NAD PLAN:CLONIDINE 0.1 MG PO BID ZOFRAN SL PRN DIRECTED FOR N/V IMODIUM PRN FOR DIARRHEA ACTIFED PRN FOR NASAL CONGESTION INCREASE PO FLUIDS
--- NOTE | 2018-09-20 10:23 | HP ---
Psychiatrist Admission - Data Date of interview: 09/20/18 Admission source: [facility] Identifying data: Patient is a 43 year old single male, father of one, unemployed (denies receiving financial assistance), and is currently homeless. This is patient's first admission to rehab at [facility]. Patient admitted to for heroin and cocaine dependence. Medical History: Chronic back pain due to herniated disc lower back and neck , Hep C. Surgeries: Appendectomy, Fracture left foot Psychiatric History: Patient's first psychiatric contact was in 2003 (during incarceration) due to worensing anxiey. States he was was tried on depakote, remeron, zoloft, abilify, and seroquel. He reports being diagnosed with anxiety and bipolar disorder. Patient reports seeing multiple mental health providers from [id number]. Last outpatient psychiatric care was provided at [facility] in 2014. He was prescribed him clonodine and seroquel. He last accepted psychotropic medications in 2014. Patient denies h/o suicide attempt. He reports feeling depressed upon admission to detox but since being off substances for several days he states his mood is improving. Patient requesting to resume seroquel for insomnia and mood stabilization. Physical/Sexual Abuse/Trauma History: Denies. Additional Comment: History of incarceration in 2003 Vital Signs: Vital Signs - 24 hr 09/19/18 09/20/18 09/20/18 21:07 00:30 03:30 Temperature 97.8 F Pulse Rate 93 H Respiratory 18 18 18 Rate Blood Pressure 118/75 09/20/18 06:42 Temperature 97.3 F L Pulse Rate 58 L Respiratory 18 Rate Blood Pressure 101/68 Allergies/Adverse Reactions: Allergies Allergy/AdvReac Type Severity Reaction Status Date / Time No Known Drug Allergies Allergy Verified 09/14/18 16:10 Date of last physical exam: 09/14/18 Concur with the findings of this exam: Yes - Substance Abuse/Tx History Hx Alcohol Use: No Hx Substance Use: Yes (Heroin- 10-15 bags daily Cocaine- $60 daily) Substance Use Type: Cocaine, Heroin Hx Substance Use Treatment: Yes (This is patient's first rehab.) Mental Status Exam - Mental Status Exam Alert and Oriented to: Time, Place, Person Cognitive Function: Good Patient Appearance: Well Groomed Mood: Hopeful, Euthymic Affect: Appropriate Patient Behavior: Appropriate, Cooperative Speech Pattern: Clear, Appropriate Voice Loudness: Normal Thought Process: Intact, Goal Oriented Thought Disorder: Not Present Hallucinations: Denies Suicidal Ideation: Denies Homicidal Ideation: Denies Insight/Judgement: Poor Sleep: Fair Appetite: Fair Muscle strength/Tone: Normal Gait/Station: Normal Psychiatric Findings - Problem List ([place] 1, 2,3) (1) Opioid dependence Current Visit: Yes Status: Acute (2) Cocaine dependence Current Visit: Yes Status: Acute (3) Substance induced mood disorder Current Visit: Yes Status: Acute (4) Bipolar disorder Current Visit: No Status: Suspected Comment: As per history.Lost to follow up for several years. - Initial Treatment Plan Initial Treatment Plan: Psychoeducation provided. Rehab in progress. Will order Seroquel 50mg qhs. Benefits and side effects discussed. Verbal consent given.
[2018-09-20] MEDS: NICOTINE 14 MG/24 HOURS TOPICAL PATCH TD SCH (10:27)
[2018-09-20] MEDS: cloNIDine HCL 0.1 MG TABLET PO SCH ×2 (10:27→21:25)
[2018-09-20] MEDS: PRENATAL VITAMINS W/ FOLIC ACID TABLET (FP) PO SCH (10:27)
[2018-09-20] MEDS: NICOTINE POLACRILEX 2 MG GUM BUC PRN (10:31)
[2018-09-20] MEDS: CYCLOBENZAPRINE HCL 5 MG TABLET PO SCH ×2 (14:16→21:25)
[2018-09-20] MEDS: THIAMINE HCL 100 MG TABLET (FP) PO SCH (21:25)
[2018-09-20] MEDS: QUEtiapine FUMARATE 50 MG TABLET PO SCH (21:25)
[2018-09-21] MEDS: CYCLOBENZAPRINE HCL 5 MG TABLET PO SCH (06:01)
[2018-09-21] MEDS: NICOTINE 14 MG/24 HOURS TOPICAL PATCH TD SCH (10:35)
[2018-09-21] MEDS: NICOTINE POLACRILEX 2 MG GUM BUC PRN (10:35)
[2018-09-21] MEDS: cloNIDine HCL 0.1 MG TABLET PO SCH (10:35)
[2018-09-21] MEDS: PRENATAL VITAMINS W/ FOLIC ACID TABLET (FP) PO SCH (10:35)
--- NOTE | 2018-09-21 10:49 | PN ---
BHS COWS - Scale Resting Pulse: 0= [place] 80 or Below Sweatin= Chills/Flushing Restless Observation: 0= Sits Still Pupil Size: 0= Normal to Room Light Bone or Joint Aches: 4=Acute Joint/Muscle Pain Runny Nose/ Eye Tearin= Nasal Congestion GI Upset > 30mins: 1= Stomach Cramp (NAUSEA) Tremor Observation of Outstretched Hands: 1= Tremor Muir, Not Seen Yawning Observation: 0= None Anxiety or Irritability: 2=Irritable/Anxious Goose Flesh Skin: 0=Smooth Skin COWS Score: 10 S Progress Note (SOAP) Subjective: AGITATION, SWEATS,CHILLS. Objective: 09/22/18 12:10 Assessment: 09/22/18 12:13 OPIOID W/S Plan: SUBOXONE DIRECTED.
[2018-09-21] MEDS ORDERED: BUPRENORPHINE/NALOXONE 2 MG/0.5 MG FILM PACKET SL ONE (11:30)
[2018-09-21] MEDS: THIAMINE HCL 100 MG TABLET (FP) PO SCH (21:23)
[2018-09-21] MEDS: BUPRENORPHINE/NALOXONE 2 MG/0.5 MG FILM PACKET SL SCH (21:23)
[2018-09-21] MEDS: QUEtiapine FUMARATE 50 MG TABLET PO SCH (21:23)
[2018-09-21] MEDS: MELATONIN 5 MG TABLETS PO PRN (21:24)
[2018-09-22] MEDS: NICOTINE 14 MG/24 HOURS TOPICAL PATCH TD SCH (09:41)
[2018-09-22] MEDS: PRENATAL VITAMINS W/ FOLIC ACID TABLET (FP) PO SCH (09:41)
[2018-09-22] MEDS: BUPRENORPHINE/NALOXONE 2 MG/0.5 MG FILM PACKET SL SCH ×2 (09:42→17:43)
[2018-09-22] MEDS: NICOTINE POLACRILEX 2 MG GUM BUC PRN (09:42)
[2018-09-22] MEDS ORDERED: BUPRENORPHINE/NALOXONE 2 MG/0.5 MG FILM PACKET SL SCH (12:14)
[2018-09-22] MEDS ORDERED: BUPRENORPHINE/NALOXONE 2 MG/0.5 MG FILM PACKET SL ONE (12:16)
--- NOTE | 2018-09-22 12:18 | PN ---
BHS Progress Note Note: PT REPORTS DISCOMFORT AND REQUESTS DOSE INCREASE. PLAN:SUBOXONE 4MG /1 MG SL BID SUBOXON 2 MG/0.5 MG SL NOW
[2018-09-22] MEDS: THIAMINE HCL 100 MG TABLET (FP) PO SCH (21:59)
[2018-09-22] MEDS: MELATONIN 5 MG TABLETS PO PRN (22:01)
[2018-09-22] MEDS: QUEtiapine FUMARATE 50 MG TABLET PO SCH (22:01)
[2018-09-23] MEDS: BUPRENORPHINE/NALOXONE 2 MG/0.5 MG FILM PACKET SL SCH ×2 (06:06→17:52)
[2018-09-23] MEDS: PRENATAL VITAMINS W/ FOLIC ACID TABLET (FP) PO SCH (10:13)
[2018-09-23] MEDS: NICOTINE 14 MG/24 HOURS TOPICAL PATCH TD SCH (10:13)
[2018-09-23] MEDS: NICOTINE POLACRILEX 2 MG GUM BUC PRN (10:13)
[2018-09-23] MEDS: QUEtiapine FUMARATE 50 MG TABLET PO SCH (22:11)
[2018-09-23] MEDS: THIAMINE HCL 100 MG TABLET (FP) PO SCH (22:11)
[2018-09-23] MEDS: MELATONIN 5 MG TABLETS PO PRN (22:11)
[2018-09-24] MEDS: BUPRENORPHINE/NALOXONE 2 MG/0.5 MG FILM PACKET SL SCH ×2 (06:10→17:56)
[2018-09-24] MEDS: NICOTINE POLACRILEX 2 MG GUM BUC PRN (09:03)
[2018-09-24] MEDS: NICOTINE 14 MG/24 HOURS TOPICAL PATCH TD SCH (09:03)
[2018-09-24] MEDS: PRENATAL VITAMINS W/ FOLIC ACID TABLET (FP) PO SCH (09:03)
[2018-09-24] MEDS: THIAMINE HCL 100 MG TABLET (FP) PO SCH (21:57)
[2018-09-24] MEDS: QUEtiapine FUMARATE 50 MG TABLET PO SCH (21:57)
[2018-09-24] MEDS: IBUPROFEN 400 MG TABLET (FP) PO PRN (21:58)
[2018-09-24] MEDS: MELATONIN 5 MG TABLETS PO PRN (21:58)
[2018-09-25] MEDS: BUPRENORPHINE/NALOXONE 2 MG/0.5 MG FILM PACKET SL SCH ×2 (06:11→17:36)
[2018-09-25] MEDS: NICOTINE 14 MG/24 HOURS TOPICAL PATCH TD SCH (10:25)
[2018-09-25] MEDS: PRENATAL VITAMINS W/ FOLIC ACID TABLET (FP) PO SCH (10:25)
[2018-09-25] MEDS: NICOTINE POLACRILEX 2 MG GUM BUC PRN ×2 (10:25→17:37)
[2018-09-25] MEDS: THIAMINE HCL 100 MG TABLET (FP) PO SCH (21:46)
[2018-09-25] MEDS: QUEtiapine FUMARATE 50 MG TABLET PO SCH (21:46)
[2018-09-25] MEDS: MELATONIN 5 MG TABLETS PO PRN (21:46)
[2018-09-26] MEDS: BUPRENORPHINE/NALOXONE 2 MG/0.5 MG FILM PACKET SL SCH ×2 (06:01→17:56)
[2018-09-26] MEDS: NICOTINE 14 MG/24 HOURS TOPICAL PATCH TD SCH (10:46)
[2018-09-26] MEDS: PRENATAL VITAMINS W/ FOLIC ACID TABLET (FP) PO SCH (10:47)
[2018-09-26] MEDS: NICOTINE POLACRILEX 2 MG GUM BUC PRN ×3 (10:47→21:47)
[2018-09-26] MEDS: MELATONIN 5 MG TABLETS PO PRN (21:47)
[2018-09-26] MEDS: THIAMINE HCL 100 MG TABLET (FP) PO SCH (21:48)
[2018-09-26] MEDS: QUEtiapine FUMARATE 50 MG TABLET PO SCH (21:48)
[2018-09-27] MEDS: BUPRENORPHINE/NALOXONE 2 MG/0.5 MG FILM PACKET SL SCH (06:15)
[2018-09-27] MEDS: NICOTINE POLACRILEX 2 MG GUM BUC PRN ×3 (07:24→21:35)
[2018-09-27] MEDS: PRENATAL VITAMINS W/ FOLIC ACID TABLET (FP) PO SCH (10:56)
[2018-09-27] MEDS: NICOTINE 14 MG/24 HOURS TOPICAL PATCH TD SCH (10:56)
--- NOTE | 2018-09-27 11:45 | PN ---
BHS Progress Note Note: PT REQUESTING FOR INCREASED SUBOXONE DOSE DUE TO CONTINUED W/S. REPORTS CHILLS, SWEATS,ANXIETY. Vital Signs 09/27/18 06:45 Temperature 97.5 F L Pulse Rate 58 L Respiratory 18 Rate Blood Pressure 124/62 REPEAT COWS SCORE:8 NAD PLAN:INCREASE SUBOXONE TO 8 MG SL BID SUBOXONE 8 MG SL X 1 TONIGHT
--- NOTE | 2018-09-27 12:32 | PN ---
BHS COWS - Scale Resting Pulse: 0= [place] 80 or Below Sweatin= Chills/Flushing Restless Observation: 3= Extraneous Movement Pupil Size: 0= Normal to Room Light Bone or Joint Aches: 1= Mild Discomfort Runny Nose/ Eye Tearin= None GI Upset > 30mins: 0= None Tremor Observation of Outstretched Hands: 1= Tremor Equality, Not Seen Yawning Observation: 0= None Anxiety or Irritability: 2=Irritable/Anxious Goose Flesh Skin: 0=Smooth Skin COWS Score: 8
[2018-09-27] MEDS ORDERED: BUPRENORPHINE/NALOXONE 8 MG/2 MG FILM PACKET SL SCH (18:00)
[2018-09-27] MEDS ORDERED: BUPRENORPHINE/NALOXONE 8 MG/2 MG FILM PACKET SL ONE (18:00)
[2018-09-27] MEDS: MELATONIN 5 MG TABLETS PO PRN (21:35)
[2018-09-27] MEDS: THIAMINE HCL 100 MG TABLET (FP) PO SCH (21:35)
[2018-09-27] MEDS: QUEtiapine FUMARATE 50 MG TABLET PO SCH (21:37)
[2018-09-28] MEDS: BUPRENORPHINE/NALOXONE 8 MG/2 MG FILM PACKET SL SCH ×2 (06:16→19:12)
[2018-09-28] MEDS: NICOTINE POLACRILEX 2 MG GUM BUC PRN ×4 (06:25→21:58)
[2018-09-28] MEDS: NICOTINE 14 MG/24 HOURS TOPICAL PATCH TD SCH (10:30)
[2018-09-28] MEDS: PRENATAL VITAMINS W/ FOLIC ACID TABLET (FP) PO SCH (10:30)
[2018-09-28] MEDS ORDERED: BUPRENORPHINE/NALOXONE 8 MG/2 MG FILM PACKET SL SCH (18:00)
[2018-09-28] MEDS: QUEtiapine FUMARATE 50 MG TABLET PO SCH (21:57)
[2018-09-28] MEDS: MELATONIN 5 MG TABLETS PO PRN (21:57)
[2018-09-28] MEDS: THIAMINE HCL 100 MG TABLET (FP) PO SCH (21:57)
[2018-09-29] MEDS: BUPRENORPHINE/NALOXONE 8 MG/2 MG FILM PACKET SL SCH ×2 (06:04→17:50)
[2018-09-29] MEDS: PRENATAL VITAMINS W/ FOLIC ACID TABLET (FP) PO SCH (10:30)
[2018-09-29] MEDS: NICOTINE POLACRILEX 2 MG GUM BUC PRN ×3 (10:31→17:52)
[2018-09-29] MEDS: NICOTINE 14 MG/24 HOURS TOPICAL PATCH TD SCH (10:31)
--- NOTE | 2018-09-29 15:03 | PN ---
Psychiatric Progress Note Vital Signs: Vital Signs Period Temp Pulse Resp BP Sys/Gross Pulse Ox Last 24 Hr 97.9 F 51 16-16 114/56 Date of Session: 09/29/18 Chief Complaint:: Discharge Note HPI: Patient addressing Opioid and Cocaine Dependence comorbid with Nicotine dependence, Bipolar Disorder and Substance-Induced Mood Disorder ROS: Hep C, Herniated Disc/Chronic back pain Current Medications: Active Medications Generic Name Dose Route Start Last Admin Trade Name Freq PRN Reason Stop Dose Admin Acetaminophen 650 mg 09/19/18 20:41 Tylenol - PO Q4H PRN FEVER Al Hydroxide/Mg Hydroxide 30 ml 09/19/18 20:41 Mylanta Oral Suspension - PO Q6H PRN DYSPEPSIA Buprenorphine/Naloxone 1 each 09/28/18 06:00 09/29/18 06:04 Suboxone 8mg/2mg Sl Film - SL 1 each BID@0600,1800 DIONICIO Administration Eucalyptus/Menthol/Phenol/Sorbitol 1 each 09/19/18 20:41 Cepastat Lozenge - MM Q4H PRN SORE THROAT Hydroxyzine Pamoate 50 mg 09/19/18 20:41 Vistaril - PO Q4H PRN AGITATION Ibuprofen 400 mg 09/19/18 20:41 09/24/18 21:58 Motrin - PO 400 mg Q6H PRN Administration Pain Level 4-6 Loperamide HCl 4 mg 09/19/18 20:41 Imodium - PO Q6H PRN DIARRHEA Magnesium Citrate 300 ml 09/19/18 20:41 Citroma - PO Q48H PRN CONSTIPATION Magnesium Hydroxide 30 ml 09/19/18 20:41 Milk Of Magnesia - PO DAILY PRN CONSTIPATION Melatonin 5 mg 09/19/18 22:00 09/28/18 21:57 Melatonin PO 5 mg HS PRN Administration INSOMNIA Nicotine 14 mg 09/20/18 10:00 09/29/18 10:31 Nicoderm Patch - TD Not Given DAILY DIONICIO Nicotine Polacrilex 2 mg 09/19/18 20:41 09/29/18 10:31 Nicorette Gum - BUC 2 mg Q2H PRN Administration NICOTINE REPLACEMENT RX Ondansetron HCl 8 mg 09/20/18 09:44 Zofran Odt - SL Q8H PRN NAUSEA AND/OR VOMITING Multivit/Folic Acid/Iron 1 tab 09/20/18 10:00 09/29/18 10:30 Vitamins (Sjr) - PO 1 tab DAILY DIONICIO Administration Quetiapine Fumarate 50 mg 09/20/18 22:00 09/28/18 21:57 Seroquel - PO Not Given HS DIONICIO Thiamine HCl 100 mg 09/19/18 22:00 09/28/18 21:57 Vitamin B1 - PO 100 mg HS DIONICIO Administration Current Side Effect: No Lab tests ordered: Yes Lab tests reviewed: Yes Provider note:: Patient will complete this program on 09/30/18. 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 Told engineering technical writer that from his participation in this program, he has learned to make changes in his lifestyle in order to be constructive for his family. He responded well to Seroquel 50 mg po HS. Script for 30 days supply of medication will be electronically transmitted to [facility] at [address] [place] [address]. He is stable for discharge on 09/30/18 Total face to face time:: 35 Mental Status Exam - Mental Status Exam Alert and Oriented to: Time, Place, Person Cognitive Function: Fair Patient Appearance: Well Groomed Mood: Hopeful, Euthymic Affect: Appropriate Patient Behavior: Cooperative Speech Pattern: Clear Voice Loudness: Normal Thought Process: Intact, Goal Oriented Thought Disorder: Not Present Hallucinations: Denies Suicidal Ideation: Denies Homicidal Ideation: Denies Insight/Judgement: Fair Sleep: Fair Appetite: Good Muscle strength/Tone: Normal Gait/Station: Normal Psychiatric Treatment Plan - Problem List (1) Opioid dependence Current Visit: Yes (2) Cocaine dependence Current Visit: Yes (3) Nicotine dependence Current Visit: Yes Qualifiers: Nicotine product type: cigarettes Substance use status: in withdrawal Qualified Code(s): F17.213 - Nicotine dependence, cigarettes, with withdrawal (4) Bipolar disorder Current Visit: No Comment: As per history.Lost to follow up for several years. (5) Substance induced mood disorder Current Visit: Yes (6) Chronic low back pain Current Visit: No Qualifiers: Back pain laterality: midline Sciatica presence: unspecified whether sciatica present Qualified Code(s): M54.5 - Low back pain; G89.29 - Other chronic pain (7) Hepatitis C Current Visit: No Qualifiers: Viral hepatitis chronicity: chronic Hepatic coma status: without hepatic coma Qualified Code(s): B18.2 - Chronic viral hepatitis C Initial treatment plan: Patient will be discharged tomorrow and referred to [facility] in [place], [place] for terminal gauger supervisor residential treatment
[2018-09-29] MEDS: QUEtiapine FUMARATE 50 MG TABLET PO SCH (21:02)
[2018-09-29] MEDS: MELATONIN 5 MG TABLETS PO PRN (21:02)
[2018-09-29] MEDS: THIAMINE HCL 100 MG TABLET (FP) PO SCH (21:02)
[2018-09-30] MEDS: BUPRENORPHINE/NALOXONE 8 MG/2 MG FILM PACKET SL SCH (06:05)
[2018-09-30 06:39] VITALS: BP 113/65; PULSE 61; TEMP 97.5
[2018-09-30] MEDS: NICOTINE POLACRILEX 2 MG GUM BUC PRN (08:35)
== END 2018-09-30 08:35 | disposition home or self-care (01) | DRG 772 ==
LOC: YASAS 19:12 → Y3W 19:13
PROVIDERS: ADMIT Psychiatry & Neurology Psychiatry; ATTEND Psychiatry & Neurology Psychiatry
PROC: HZ42ZZZ Group Counseling for Substance Abuse Treatment, Cognitive-Behavioral (ICD-10-PCS; principal; 2018-09-19)
DX: F11.20 Opioid dependence, uncomplicated (principal); F14.20 Cocaine dependence, uncomplicated; F17.200 Nicotine dependence, unspecified, uncomplicated; F31.9 Bipolar disorder, unspecified; F19.24 Other psychoactive substance dependence with psychoactive substance-induced mood disorder; M54.5 Low back pain; G89.29 Other chronic pain; B18.2 Chronic viral hepatitis C; Z59.0 Homelessness
CPT/HCPCS: J0735

== ENCOUNTER 2018-11-21 19:44 | Inpatient (IN) | payer OTHER ==
[2018-11-22 00:13] VITALS: BMI 23.9
--- NOTE | 2018-11-22 01:43 | HP ---
COWS - Scale Resting Pulse: 0= [place] 80 or Below Sweatin=Flushed/Facial Moisture Restless Observation: 0= Sits Still Pupil Size: 0= Normal to Room Light Bone or Joint Aches: 4=Acute Joint/Muscle Pain Runny Nose/ Eye Tearin= Runny Nose/Eyes GI Upset > 30mins: 1= Stomach Cramp Tremor Observation: 2= Slight Tremor Visible Yawning Observation: 0= None Anxiety or Irritability: 4=Extreme Anxiety Goose Flesh Skin: 0=Smooth Skin COWS Score: 15 CIWA Score - Admission Criteria OAS Guidelines: Admission for Medically Managed Detox: Requires at least one of the followin. CIWA greater than 12 2. Seizures within the past 24 hours 3. Delirium tremens within the past 24 hours 4. Hallucinations within the past 24 hours 5. Acute intervention needed for co occurring medical disorder 6. Acute intervention needed for co occurring psychiatric disorder 7. Severe withdrawal that cannot be handled at a lower level of care (continued vomiting, continued diarrhea, abnormal vital signs) requiring intravenous medication and/or fluids 8. Admission ROS [facility] Chief Complaint: Heroin withdrawal symptoms Allergies/Adverse Reactions: Allergies Allergy/AdvReac Type Severity Reaction Status Date / Time No Known Drug Allergies Allergy Verified 09/14/18 16:10 History of Present Illness: 43 years old male with 24 years of heroin dependence is seeking admission to detox. Patient has had multiple detox here and his last detox was for the period 09/19/2018 - 09/30/2019. He reports 5 years of sobriety. He has medical history of Hep. C, depression and anxiety. He denies suicidal ideation at this time. Exam Limitations: No Limitations - Ebola screening Have you traveled outside of the country in the last 21 days: No Have you had contact with anyone from an Ebola affected area: No Have you been sick,other than usual withdrawal symptoms: No Do you have a fever: No - Review of Systems Constitutional: Chills, Loss of Appetite, Malaise, Changes in sleep EENT: reports: Nose Congestion Respiratory: reports: No Symptoms reported Cardiac: reports: No Symptoms Reported GI: reports: Poor Appetite, Poor Fluid Intake, Abdominal cramping : reports: No Symptoms Reported Musculoskeletal: reports: Back Pain, Muscle Pain Integumentary: reports: Dryness, Flushing Neuro: reports: Headache, Tremors Endocrine: reports: No Symptoms Reported Hematology: reports: No Symptoms Reported Psychiatric: reports: Anxious, Depressed Other Systems: Reviewed and Negative Patient History - Patient Medical History Hx Anemia: No Hx Asthma: No Hx Chronic Obstructive Pulmonary Disease (COPD): No Hx Cancer: No Hx Cardiac Disorders: No Hx Congestive Heart Failure: No Hx Hypertension: No Hx Hypercholesterolemia: No Hx Pacemaker: No HX Cerebrovascular Accident: No Hx Seizures: No Hx Dementia: No Hx Diabetes: No Hx Gastrointestinal Disorders: No Hx Liver Disease: No Hx Genitourinary Disorders: No Hx Sexually Transmitted Disorders: No Hx Renal Disease (ESRD): No Hx Thyroid Disease: No Hx Human Immunodeficiency Virus (HIV): No (2018 neg) Hx Hepatitis C: Yes (TREATED IN 2015 WITH HARVONI- Relapsed) Hx Depression: No Hx Suicide Attempt: No Hx Bipolar Disorder: Yes (Not on medication) Hx Schizophrenia: No Other Medical History: ANXIETY _ Not on medication - Patient Surgical History Past Surgical History: Yes Hx Neurologic Surgery: No Hx Cataract Extraction: No Hx Cardiac Surgery: No Hx Lung Surgery: No Hx Breast Surgery: No Hx Breast Biopsy: No Hx Abdominal Surgery: No Hx Appendectomy: Yes (in 1990) Hx Cholecystectomy: No Hx Genitourinary Surgery: No Hx Section: No Hx Orthopedic Surgery: No Anesthesia Reaction: No - PPD History Previous Implant?: Yes Documented Results: Negative w/proof Date: 09/16/18 Results: 0 mm PPD to be Administered?: No - Reproductive History Patient is a Female of Child Bearing Age (11 -55 yrs old): No (Male) - Smoking Cessation Smoking history: Current every day smoker Have you smoked in the past 12 months: Yes Aproximately how many cigarettes per day: 10 Cigars Per Day: 10 Hx Chewing Tobacco Use: No Initiated information on smoking cessation: Yes 'Breaking Loose' booklet given: 11/22/18 - Substance & Tx. History Hx Alcohol Use: No Hx Substance Use: Yes Substance Use Type: Heroin Hx Substance Use Treatment: Yes ([facility]) - Substances Abused Heroin Route: Injection Frequency: Daily Amount used: $140 Age of first use: 19 Date of Last Use: 11/21/18 Cocaine Route: Injection Frequency: Daily Amount used: $60 Age of first use: 19 Date of Last Use: 11/21/18 Family Disease History - Family Disease History Family Disease History: Diabetes: Grandparent, [place]: Grandparent, Other: Father ( substance) Admission Physical Exam [facility] - Vital Signs Vital Signs: Vital Signs - 24 hr 11/22/18 00:10 Temperature 97.7 F Pulse Rate 60 Respiratory 18 Rate Blood Pressure 112/58 L - Physical General Appearance: Yes: Moderate Distress, Irritable, Sweating, Anxious HEENTM: Yes: EOMI, Normal ENT Inspection, Normal Voice, DIANA Respiratory: Yes: Lungs Clear, Normal Breath Sounds, No Respiratory Distress Neck: Yes: Supple Breast: Yes: Breast Exam Deferred Cardiology: Yes: Regular Rhythm, Regular Rate Abdominal: Yes: Normal Bowel Sounds Genitourinary: Yes: Within Normal Limits Back: Yes: CVA Tenderness (L) Musculoskeletal: Yes: Back pain, Muscle Pain Extremities: Yes: Tremors Neurological: Yes: Alert, Normal Mood/Affect Integumentary: Yes: Warm Lymphatic: Yes: Within Normal Limits - Diagnostic (1) Opioid dependence with withdrawal Current Visit: Yes Status: Chronic (2) Anxiety Current Visit: No Status: Chronic (3) Cocaine dependence, uncomplicated Current Visit: Yes Status: Chronic (4) Depression Current Visit: Yes Status: Chronic Qualifiers: Depression Type: unspecified Qualified Code(s): F32.9 - Major depressive disorder, single episode, unspecified (5) Hepatitis C Current Visit: Yes Status: Chronic Qualifiers: Viral hepatitis chronicity: chronic Hepatic coma status: without hepatic coma Qualified Code(s): B18.2 - Chronic viral hepatitis C (6) Nicotine dependence Current Visit: Yes Status: Chronic Qualifiers: Nicotine product type: cigarettes Substance use status: uncomplicated Qualified Code(s): F17.210 - Nicotine dependence, cigarettes, uncomplicated Cleared for Admission [facility] - Detox or Rehab [facility] Level of Care: Medically Managed Detox Regimen/Protocol: Methadone [facility] Breath Alcohol Content Breath Alcohol Content: 0 Urine Drug Screen - Results Drug Screen Negative: No Urine Drug Screen Results: HERMINIO-Cocaine, OPI-Opiates, BZO-Benzodiazepines, FEN- Fentanyl
[2018-11-22] MEDS ORDERED: MAGNESIUM CITRATE 300 ML BOTTLE PO PRN (02:06)
[2018-11-22] MEDS ORDERED: IBUPROFEN 400 MG TABLET (FP) PO PRN (02:06)
[2018-11-22] MEDS ORDERED: P-EPHED 60MG/TRIPROLIDI 2.5MG TABLET PO PRN (02:06)
[2018-11-22] MEDS ORDERED: MENTHOL/PHENOL 1 EACH UD MM PRN (02:06)
[2018-11-22] MEDS ORDERED: NICOTINE POLACRILEX 2 MG GUM BC PRN (02:06)
[2018-11-22] MEDS ORDERED: LOPERAMIDE HCL 2 MG CAPSULE PO PRN (02:06)
[2018-11-22] MEDS ORDERED: guaiFENesin/D-METHORPHAN HB 10 ML UNIT-DOSE CUPS PO PRN (02:06)
[2018-11-22] MEDS ORDERED: ACETAMINOPHEN 325 MG TABLET (FP) PO PRN (02:06)
[2018-11-22] MEDS ORDERED: METHADONE HCL 10 MG TABLET (FOR DETOX USE ONLY) PO ONE ×3 (02:06→23:00)
[2018-11-22] MEDS ORDERED: MAG HYDROX/AL HYDROX/SIMETH 30 ML UNIT-DOSE CUP PO PRN (02:06)
[2018-11-22] MEDS ORDERED: MAGNESIUM HYDROX 2400MG/30ML ORAL SUSPENSION 30 ML CUP PO PRN (02:06)
[2018-11-22] MEDS: diazePAM 5 MG TABLET PO PRN ×2 (03:04→10:23)
[2018-11-22] MEDS: PRENATAL VITAMINS W/ FOLIC ACID TABLET (FP) PO SCH (10:22)
[2018-11-22] MEDS: NICOTINE 14 MG/24 HOURS TOPICAL PATCH TD SCH (10:25)
--- NOTE | 2018-11-22 13:04 | PN ---
BHS COWS - Scale Resting Pulse: 0= [place] 80 or Below Sweatin= Chills/Flushing Restless Observation: 0= Sits Still Pupil Size: 0= Normal to Room Light Bone or Joint Aches: 2= Severe Diffuse Aches Runny Nose/ Eye Tearin= Runny Nose/Eyes GI Upset > 30mins: 0= None Tremor Observation of Outstretched Hands: 2= Slight Tremor Visible Yawning Observation: 1= 1-2x During Session Anxiety or Irritability: 2=Irritable/Anxious Goose Flesh Skin: 3=Piloerection COWS Score: 13 BHS Progress Note (SOAP) Subjective: Body Aches, Tremors, Fatigue. Objective: PATIENT A & O X 2 (UNCERTAIN ABOUT CURRENT DAY / DATE). PATIENT OBSERVED AMBULATING ON UNIT. IN NO ACUTE DISTRESS. 11/22/18 13:05 Vital Signs Temperature 97.3 F L 11/22/18 09:02 Pulse Rate 61 11/22/18 09:02 Respiratory Rate 18 11/22/18 09:02 Blood Pressure 108/50 L 11/22/18 09:02 O2 Sat by Pulse Oximetry (%) ADMISSION LAB RESULTS PENDING. 11/22/18 13:05 Assessment: 11/22/18 13:05 WITHDRAWAL SYMPTOMS. Plan: CONTINUE DETOX.
--- NOTE | 2018-11-22 13:06 | CONSULT ---
[facility] Psychiatric Consult - Data Date of interview: 11/22/18 Admission source: [facility] Identifying data: This is one of multiple admissions to [facility] for this 43 y/ o male underging detoxification (heroin, cocaine). Interviewed on . Patient is single, a father of one, homeless, unemployed and supported on welfare. Substance Abuse History: Discussed with patient. Details are included in current [facility] report as follows : Smoking history: Current every day smoker. Have you smoked in the past 12 months: Yes. Aproximately how many cigarettes per day: 10. Cigars Per Day: 10. Hx Chewing Tobacco Use: No. Initiated information on smoking cessation: Yes. 'Breaking Loose' booklet given: . - Substance & Tx. History. Hx Alcohol Use: No. Hx Substance Use: Yes. Substance Use Type: Heroin. Hx Substance Use Treatment: Yes ([facility]). - Substances Abused. Heroin. Route: Injection. Frequency: Daily. Amount used: $140. Age of first use: 19. Date of Last Use: 11/21/18. Cocaine. Route: Injection. Frequency: Daily. Amount used: $60. Age of first use: 19. Date of Last Use: 11/21/18 Medical History: Significant for chronic lumbar pain, hepatitis C and a history of surgeries (orthosurgery for fracture of left wrist + appendectomy). Psychiatric History: No reported history of psychiatric hospitalizations or suicide attempts. First contact with Psychiatry occurred during his incarceration (2003). Diagnosed at the time with Bipolar Disorder. Over the years, the patient has received trials of various psychotropic agents which include seroquel, valproate, buspirone, remeron, zoloft, abilify, xanax and seroquel. Patient has reportedly been under the care of multiple mental health providers from 2004 to 2015. Dropped out of [employer] care and lost to follow-up since 2014. Last known outpatient psychiatric contact was at the [facility] (2014). Physical/Sexual Abuse/Trauma History: Patient denies. Additional Comment: Urine Drug Screen Results: HERMINIO-Cocaine, OPI-Opiates, BZO- Benzodiazepines, FEN-Fentanyl. Noted. Mental Status Exam - Mental Status Exam Alert and Oriented to: Time, Place, Person Cognitive Function: Good Patient Appearance: Well Groomed Mood: Nervous, Withdrawn Affect: Mood Congruent, Constricted Patient Behavior: Fatigued (falling asleep during the interview), Cooperative Speech Pattern: Delayed, Slurred Voice Loudness: Moderately Soft/Quiet Thought Process: Goal Oriented Thought Disorder: Not Present Hallucinations: Denies Suicidal Ideation: Denies Homicidal Ideation: Denies Insight/Judgement: Poor Sleep: Well Appetite: Good Muscle strength/Tone: Normal Gait/Station: Other (not observed ; in bed for entire interview) Psychiatric Findings - Problem List ([place] 1, 2,3) (1) Opioid dependence with withdrawal Current Visit: Yes Status: Acute (2) Cocaine dependence, uncomplicated Current Visit: Yes Status: Chronic (3) Nicotine dependence Current Visit: Yes Status: Chronic Qualifiers: Nicotine product type: cigarettes Substance use status: uncomplicated Qualified Code(s): F17.210 - Nicotine dependence, cigarettes, uncomplicated (4) Substance induced mood disorder Current Visit: Yes Status: Chronic (5) Non compliance w medication regimen Current Visit: Yes Status: Chronic - Initial Treatment Plan Initial Treatment Plan: Psychoeducation. Detoxification in progress. Sleep hygiene. Motivational rounds to foster sobriety. AA/NA meetings. Group therapy. No justification, at this time, for inclusion of an hypnotic medication ( currently somnolent during this evaluation) to the regimen. Strategies for relapse prevention (token economy, methadone, suboxone, naltrexone in addition to NA fellowship + psychotherapy, harm reduction) will be discussed with the patient during this hospital course. Observation.
[2018-11-22] MEDS: THIAMINE HCL 100 MG TABLET (FP) PO SCH (22:26)
[2018-11-23] MEDS ORDERED: METHADONE HCL 10 MG TABLET (FOR DETOX USE ONLY) PO ONE (10:00)
[2018-11-23] MEDS: NICOTINE 14 MG/24 HOURS TOPICAL PATCH TD SCH (10:07)
[2018-11-23] MEDS: PRENATAL VITAMINS W/ FOLIC ACID TABLET (FP) PO SCH (10:07)
[2018-11-23] MEDS: diazePAM 5 MG TABLET PO PRN ×2 (10:10→22:12)
[2018-11-23 10:34] LABS: ALBUMIN 3.5 g/dl (3.4-5.0); ALK PHOS 141 U/L (45-117); ANION GAP 7 MMOL/L (8-16); BILIRUBIN,TOTAL 0.4 mg/dL (0.2-1); BLOOD UREA NITROGEN 14 mg/dL (7-18); CALCIUM 8.9 mg/dL (8.5-10.1); CHLORIDE 105 mmol/L (98-107); CO2 29 mmol/L (21-32); CREATININE 0.8 mg/dL (0.55-1.3); GLUCOSE,RANDOM 88 mg/dL (74-106); POTASSIUM 4.4 mmol/L (3.5-5.1); SGOT/AST 33 U/L (15-37); SGPT/ALT 47 U/L (13-61); SODIUM 141 mmol/L (136-145); TOT PROT 6.8 g/dl (6.4-8.2)
[2018-11-23 12:14] LABS: HEMATOCRIT 42.5 % (35.4-49); HEMOGLOBIN 14.6 GM/dL (11.7-16.9); MCH 31.4 pg (25.7-33.7); MCHC 34.4 g/dl (32.0-35.9); MEAN CELL VOLUME 91.4 fl (80-96); MEAN PLT VOLUME 7.4 fl (7.5-11.1); PLATELET COUNT 230 K/MM3 (134-434); RBC 4.65 M/mm3 (4.00-5.60); RDW 15.4 % (11.9-15.9); WHITE BLOOD COUNT 4.3 K/mm3 (4.0-10.0)
--- NOTE | 2018-11-23 16:17 | PN ---
BHS COWS - Scale Resting Pulse: 0= [place] 80 or Below Sweatin= No chills or Flushing Restless Observation: 1= Difficult to Sit Still Pupil Size: 0= Normal to Room Light Bone or Joint Aches: 0= None Runny Nose/ Eye Tearin= None GI Upset > 30mins: 0= None Tremor Observation of Outstretched Hands: 0= None Yawning Observation: 0= None Anxiety or Irritability: 1=Feels Anxious/Irritable Goose Flesh Skin: 0=Smooth Skin COWS Score: 2 BHS Progress Note (SOAP) Subjective: pt states he is doing well with the methadone detox protocol O: Laboratory Tests 11/23/18 11/23/18 11/23/18 07:00 07:00 07:00 WBC 4.3 RBC 4.65 Hgb 14.6 Hct 42.5 D MCV 91.4 MCH 31.4 MCHC 34.4 RDW 15.4 Plt Count 230 MPV 7.4 L Sodium 141 Potassium 4.4 Chloride 105 Carbon Dioxide 29 Anion Gap 7 L BUN 14 Creatinine 0.8 Creat Clearance w eGFR > 60 Random Glucose 88 Calcium 8.9 Total Bilirubin 0.4 AST 33 ALT 47 Alkaline Phosphatase 141 H Total Protein 6.8 Albumin 3.5 RPR Titer Nonreactive Vital Signs - 24 hr 11/22/18 11/22/18 11/23/18 17:40 20:53 00:30 Temperature 97.9 F 97.6 F Pulse Rate 71 61 Respiratory 18 16 18 Rate Blood Pressure 104/60 135/58 L 11/23/18 11/23/18 11/23/18 03:30 07:20 09:08 Temperature 97.7 F 97.9 F Pulse Rate 61 62 Respiratory 18 18 18 Rate Blood Pressure 114/64 126/73 11/23/18 13:40 Temperature 97.3 F L Pulse Rate 65 Respiratory 18 Rate Blood Pressure 113/60 a/p: continue heroin detox protocol: pt doing well
[2018-11-23] MEDS: THIAMINE HCL 100 MG TABLET (FP) PO SCH (22:11)
[2018-11-24] MEDS ORDERED: METHADONE HCL 5 MG TABLET (FOR DETOX USE ONLY) PO ONE (10:00)
[2018-11-24] MEDS: PRENATAL VITAMINS W/ FOLIC ACID TABLET (FP) PO SCH (10:34)
[2018-11-24] MEDS: NICOTINE 14 MG/24 HOURS TOPICAL PATCH TD SCH (10:34)
--- NOTE | 2018-11-24 16:16 | PN ---
BHS Progress Note (SOAP) Subjective: Stomach Cramping, Tremors, Constipation, Chills, Fatigue. Objective: PATIENT A & O X 3. IN NO ACUTE DISTRESS. 11/24/18 16:14 Vital Signs Temperature 98.6 F 11/24/18 13:28 Pulse Rate 59 L 11/24/18 13:28 Respiratory Rate 18 11/24/18 13:28 Blood Pressure 120/62 11/24/18 13:28 O2 Sat by Pulse Oximetry (%) Laboratory Tests 11/23/18 11/23/18 11/23/18 07:00 07:00 07:00 WBC 4.3 RBC 4.65 Hgb 14.6 Hct 42.5 D MCV 91.4 MCH 31.4 MCHC 34.4 RDW 15.4 Plt Count 230 MPV 7.4 L Sodium 141 Potassium 4.4 Chloride 105 Carbon Dioxide 29 Anion Gap 7 L BUN 14 Creatinine 0.8 Creat Clearance w eGFR > 60 Random Glucose 88 Calcium 8.9 Total Bilirubin 0.4 AST 33 ALT 47 Alkaline Phosphatase 141 H Total Protein 6.8 Albumin 3.5 RPR Titer Nonreactive LABS NOTED. Assessment: 11/24/18 16:15 WITHDRAWAL SYMPTOMS. Plan: CONTINUE DETOX. INCREASE DAILY PO FLUID INTAKE. PRN MOM FOR CONSTIPATION.
[2018-11-24] MEDS: diazePAM 5 MG TABLET PO PRN (22:06)
[2018-11-24] MEDS: THIAMINE HCL 100 MG TABLET (FP) PO SCH (22:06)
[2018-11-24] MEDS: MELATONIN 5 MG TABLETS PO PRN (22:07)
[2018-11-25] MEDS ORDERED: METHADONE HCL 5 MG TABLET (FOR DETOX USE ONLY) PO ONE (10:00)
[2018-11-25] MEDS: PRENATAL VITAMINS W/ FOLIC ACID TABLET (FP) PO SCH (10:16)
[2018-11-25] MEDS: NICOTINE 14 MG/24 HOURS TOPICAL PATCH TD SCH (10:17)
--- NOTE | 2018-11-25 12:23 | PN ---
BHS Progress Note (SOAP) Subjective: interrupted sleep, sweats, lbp Objective: 11/25/18 12:20 Vital Signs Temperature 97.9 F 11/25/18 09:36 Pulse Rate 68 11/25/18 09:36 Respiratory Rate 18 11/25/18 09:36 Blood Pressure 106/56 L 11/25/18 09:36 O2 Sat by Pulse Oximetry (%) Laboratory Tests 11/23/18 11/23/18 11/23/18 07:00 07:00 07:00 WBC 4.3 RBC 4.65 Hgb 14.6 Hct 42.5 D MCV 91.4 MCH 31.4 MCHC 34.4 RDW 15.4 Plt Count 230 MPV 7.4 L Sodium 141 Potassium 4.4 Chloride 105 Carbon Dioxide 29 Anion Gap 7 L BUN 14 Creatinine 0.8 Creat Clearance w eGFR > 60 Random Glucose 88 Calcium 8.9 Total Bilirubin 0.4 AST 33 ALT 47 Alkaline Phosphatase 141 H Total Protein 6.8 Albumin 3.5 RPR Titer Nonreactive pt aox3 in nad eatting lunch in dayroom Assessment: 11/25/18 12:21 withdrawal sx's Plan: cont. detox increase fluids flexeril tid motrin prn d/c in am
[2018-11-25] MEDS: CYCLOBENZAPRINE HCL 10 MG TABLET (FP) PO PRN (22:35)
[2018-11-25] MEDS: MELATONIN 5 MG TABLETS PO PRN (22:35)
[2018-11-25] MEDS: THIAMINE HCL 100 MG TABLET (FP) PO SCH (22:35)
[2018-11-26] MEDS ORDERED: METHADONE HCL 10 MG TABLET (FOR DETOX USE ONLY) PO ONE (10:00)
--- NOTE | 2018-11-26 10:15 | PN ---
BHS Progress Note (SOAP) Subjective: Back pain, interrupted seep Objective: 11/26/18 10:13 Vital Signs 11/26/18 11/26/18 11/26/18 03:30 06:37 06:39 Temperature 97.9 F 97.2 F L Pulse Rate 82 49 L Respiratory 18 18 16 Rate Blood Pressure 152/80 100/57 L 11/26/18 09:15 Temperature 97.9 F Pulse Rate 68 Respiratory 18 Rate Blood Pressure 109/59 L Laboratory Last Values WBC 4.3 K/mm3 (4.0-10.0) 11/23/18 07:00 RBC 4.65 M/mm3 (4.00-5.60) 11/23/18 07:00 Hgb 14.6 GM/dL (11.7-16.9) 11/23/18 07:00 Hct 42.5 % (35.4-49) D 11/23/18 07:00 MCV 91.4 fl (80-96) 11/23/18 07:00 MCH 31.4 pg (25.7-33.7) 11/23/18 07:00 MCHC 34.4 g/dl (32.0-35.9) 11/23/18 07:00 RDW 15.4 % (11.9-15.9) 11/23/18 07:00 Plt Count 230 K/MM3 (134-434) 11/23/18 07:00 MPV 7.4 fl (7.5-11.1) L 11/23/18 07:00 Sodium 141 mmol/L (136-145) 11/23/18 07:00 Potassium 4.4 mmol/L (3.5-5.1) 11/23/18 07:00 Chloride 105 mmol/L (98-107) 11/23/18 07:00 Carbon Dioxide 29 mmol/L (21-32) 11/23/18 07:00 Anion Gap 7 MMOL/L (8-16) L 11/23/18 07:00 BUN 14 mg/dL (7-18) 11/23/18 07:00 Creatinine 0.8 mg/dL (0.55-1.3) 11/23/18 07:00 Creat Clearance w eGFR > 60 (>60) 11/23/18 07:00 Random Glucose 88 mg/dL (74-106) 11/23/18 07:00 Calcium 8.9 mg/dL (8.5-10.1) 11/23/18 07:00 Total Bilirubin 0.4 mg/dL (0.2-1) 11/23/18 07:00 AST 33 U/L (15-37) 11/23/18 07:00 ALT 47 U/L (13-61) 11/23/18 07:00 Alkaline Phosphatase 141 U/L (45-117) H 11/23/18 07:00 Total Protein 6.8 g/dl (6.4-8.2) 11/23/18 07:00 Albumin 3.5 g/dl (3.4-5.0) 11/23/18 07:00 RPR Titer Nonreactive (NONREACTIVE) 11/23/18 07:00 Labs noted, no panic values Assessment: 11/26/18 10:14 Withdrawal sx Plan: Continue detox
[2018-11-26] MEDS: PRENATAL VITAMINS W/ FOLIC ACID TABLET (FP) PO SCH (10:51)
[2018-11-26] MEDS: NICOTINE 14 MG/24 HOURS TOPICAL PATCH TD SCH (10:51)
[2018-11-26] MEDS: CYCLOBENZAPRINE HCL 10 MG TABLET (FP) PO PRN ×2 (10:52→22:04)
[2018-11-26] MEDS: THIAMINE HCL 100 MG TABLET (FP) PO SCH (22:04)
[2018-11-26] MEDS: MELATONIN 5 MG TABLETS PO PRN (22:04)
[2018-11-27] MEDS: CYCLOBENZAPRINE HCL 10 MG TABLET (FP) PO PRN ×2 (05:30→22:32)
[2018-11-27] MEDS ORDERED: METHADONE HCL 5 MG TABLET (FOR DETOX USE ONLY) PO ONE (06:00)
[2018-11-27] MEDS: NICOTINE 14 MG/24 HOURS TOPICAL PATCH TD SCH (11:57)
[2018-11-27] MEDS: PRENATAL VITAMINS W/ FOLIC ACID TABLET (FP) PO SCH (11:57)
--- NOTE | 2018-11-27 15:30 | PN ---
BHS Progress Note (SOAP) Subjective: Pt doing well. Leaving for rehab [facility]- they did not yet review pt's chart-plan d/c tomorrow. PT without complaints Vital Signs - 24 hr 11/26/18 11/26/18 11/27/18 17:21 22:06 00:30 Temperature 98.2 F 97.6 F Pulse Rate 62 55 L Respiratory 19 18 18 Rate Blood Pressure 103/52 L 114/54 L 11/27/18 11/27/18 11/27/18 03:30 06:25 06:35 Temperature 97.5 F L 97.5 F L Pulse Rate 54 L 54 L Respiratory 18 18 18 Rate Blood Pressure 103/67 103/67 11/27/18 11/27/18 09:16 13:58 Temperature 96.3 F L 97.9 F Pulse Rate 65 65 Respiratory 18 18 Rate Blood Pressure 113/59 L 108/64 a/p: to rehab tomorrow
[2018-11-27] MEDS: THIAMINE HCL 100 MG TABLET (FP) PO SCH (22:31)
[2018-11-27] MEDS: MELATONIN 5 MG TABLETS PO PRN (22:32)
[2018-11-28 05:46] VITALS: BP 105/61; PULSE 59; TEMP 97.2
--- NOTE | 2018-11-28 08:22 | DS ---
[facility] Discharge Summary Admission Date: 11/21/18 Discharge Date: 11/28/18 - History Present History: Opioid Dependence - Physical Exam Results Vital Signs: Vital Signs Temperature 97.2 F L 11/28/18 05:46 Pulse Rate 59 L 11/28/18 05:46 Respiratory Rate 18 11/28/18 05:46 Blood Pressure 105/61 11/28/18 05:46 O2 Sat by Pulse Oximetry (%) - Treatment Hospital Course: Detox Protocol Followed, Detoxed Safely, Responded well, Discharged Condition Good, Rehab Referral Accepted - Medication Discharge Medications: Ambulatory Orders Buprenorphine/Naloxone [Suboxone 8Mg/2Mg Sl Film -] 1 each SL BID@0600,1800 7 Days #14 film MDD 16mg 09/29/18 Quetiapine Fumarate [Seroquel -] 50 mg PO HS #30 tablet 09/29/18 Quetiapine Fumarate [Seroquel -] 50 mg PO HS #30 tablet 09/29/18 - AMA Did Patient Leave Against Medical Advice: No (referred to [facility] in patient rehab)
== END 2018-11-28 07:09 | disposition home or self-care (01) | DRG 773 ==
LOC: YASAS 19:44 → Y6N 23:50
PROVIDERS: ADMIT Neuromusculoskeletal Medicine & OMM; ATTEND Neuromusculoskeletal Medicine & OMM
PROC: HZ2ZZZZ Detoxification Services for Substance Abuse Treatment (ICD-10-PCS; principal; 2018-11-21)
DX: F11.23 Opioid dependence with withdrawal (principal); F14.20 Cocaine dependence, uncomplicated; F17.210 Nicotine dependence, cigarettes, uncomplicated; F32.9 Major depressive disorder, single episode, unspecified; F19.24 Other psychoactive substance dependence with psychoactive substance-induced mood disorder; F41.9 Anxiety disorder, unspecified; B18.2 Chronic viral hepatitis C; G47.00 Insomnia, unspecified; Z91.14 Patient's other noncompliance with medication regimen; Z59.0 Homelessness
CPT/HCPCS: 36415; 80053; 85027; 86593